=== PATIENT | female | born 2000 | race Two or more races ===

== ENCOUNTER 2022-05-18 16:01 | Emergency (ER) | payer MEDICAID, SELFPAY ==
[2022-05-18 17:27] VITALS: BP 102/59; PULSE 109; RESP 20; TEMP 36.6; O2SAT 100; BMI 24.0
[2022-05-18 18:00] LABS: MANUAL DIFF FLAG NO
[2022-05-18 18:01] LABS: Basophils Percent Auto 0.3 % (0-2); Hematocrit 36.6 % (37.0-47.0); Hemoglobin 12.2 g/dl (12.0-16.0); Imm Gran Abs Auto 0.11 X10*3/uL (0.00-0.03); Imm Gran Pct Auto 1.2 % (0.0-0.4); Lymphocytes Absolute Auto 0.4 X10*3/uL (1.2-4.9); Lymphocytes Percent Auto 3.9 % (20-40); Mean Corpuscular HGB Conc 33.3 g/dl (31.0-35.0); Mean Corpuscular Hemoglobin 27.7 pg (27.0-33.0); Mean Corpuscular Volume 83.2 fL (80.0-98.0); Mean Platelet Volume 11.4 fL (9.4-12.3); Monocytes Absolute Auto 0.7 X10*3/uL (0.1-1.2); Monocytes Percent Auto 7.4 % (2-11); Neutrophils Absolute Auto 8.2 x10*3/uL (2.0-8.3); Neutrophils Percent Auto 87.2 % (45-73); Platelet Count 252 X10*3/uL (160-400); Red Cell Distribution Width 13.9 % (11.0-16.0); White Blood Count 9.4 X10*3/uL (4.8-10.8)
[2022-05-18 18:22] LABS: Alanine Aminotransferase 19 U/L (0-31); Albumin Level 4.4 g/dL (3.5-5.0); Alkaline Phosphatase 65 U/L (39-117); Anion Gap 16 (12-20); Aspartate Amino Transferase 18 U/L (5-31); Bilirubin Direct < 0.2 mg/dL (0.0-0.5); Bilirubin Total 0.2 mg/dL (0.0-1.0); Blood Urea Nitrogen 10 mg/dL (9-16); Carbon Dioxide 19 mmol/L (22-29); Chloride 106 mmol/L (96-108); Creatinine Clr Calc Pharmacy 105.2; Estimated Glomerular Filt Rate > 60; Glucose Random 94 mg/dL (60-115); Lipase 6 U/L (8-78); Potassium 3.9 mmol/L (3.3-5.1); Sodium 137 mmol/L (135-145); Total Protein 7.1 g/dL (6.5-8.0)
== END 2022-05-18 20:35 | disposition left against medical advice (07) ==
LOC: HO.ED 20:31
PROVIDERS: Emergency Provider Emergency Medicine
DX: M79.10 Myalgia, unspecified site (principal); R11.10 Vomiting, unspecified; Z79.899 Other long term (current) drug therapy
CPT/HCPCS: 36415; 80048; 80076; 83690; 85025; 99281; 99282

== ENCOUNTER 2022-05-19 08:49 | Emergency (ER) | payer MEDICAID, SELFPAY ==
[2022-05-19 09:59] VITALS: BP 100/60; PULSE 100; RESP 18; TEMP 37.7; O2SAT 99; BMI 24.0
[2022-05-19] MEDS: Ondansetron ODT 4 MG TAB.RAPDIS TRANSLINGU (10:12)
[2022-05-19] MEDS: Ibuprofen 600 MG TABLET PO (10:12)
[2022-05-19 10:26] LABS: COVID-19 Test Positive (Negative); IDNOW Serial# 16C4AD1C
--- NOTE | 2022-05-19 12:24 | ED.NAVMDI ---
HPI - Nausea/Vomiting/Diarrhea General Chief complaint: Nausea/Vomiting/Diarrhea Stated complaint: vomiting dizzy Time Seen by Provider: 05/19/22 12:07 Source: patient Mode of arrival: ambulatory Limitations: no limitations History of Present Illness HPI Narrative: nausea and body aches - COVID + vaccinated x 2. vomited x 5 yesterday. but able to tolerate PO today. also notes rash on face since vomiting MD elicited complaint: nausea and vomiting Onset (ago): day(s) (yesterday ) Description of vomiting: watery Associated nausea: Yes Associated abdominal pain: No Location of pain: none Pain consistency: intermittent Severity: mild Quality: dull (body aches) Exacerbating factors: eating Relieving factors: none Context: sick contacts (went to [place]) Associated symptoms: myalgias, loss of appetite, malaise and nausea/vomiting Related Data Previous Rx's Medication Instructions Recorded ondansetron 4 mg disintegrating 4 mg PO Q8H PRN nausea and 05/19/22 tablet vomiting #20 tabs Allergies Allergy/AdvReac Type Severity Reaction Status Date / Time No Known Allergies Allergy Verified 05/18/22 17:26 Review of Systems Review of Systems: Constitutional : No Weight loss, No Fever, No Chills ENT/Mouth : No sore throat, No Rhinorrhea Eyes: No Swelling, No Redness Cardiovascular : No Chest Pain, No SOB, NoEdema Respiratory : No Cough, No Sputum, No Wheezing Gastrointestinal : Positive Nausea, Positive Vomiting, no Diarrhea, no abdominal Pain, No Hematochezia, No Melena Genitourinary : No Dysuria, No Urinary Frequency, No Hematuria, No Urgency Musculoskeletal : No joint pain, pos Myalgias, No Joint Swelling Skin : No Skin Lesions, pos rash Neuro : No Weakness, No Numbness, No Dizziness, No Headache Psych : No Anxiety/Panic, No Depression Heme/Lymph: No Bruising, No Lymphadenopathy Endocrine : No Polyuria, No Polydipsia All other systems reviewed and are negative. Gastrointestinal: Gastrointestinal: Reports nausea PMFSH Past Medical History Medical History No pertinent past medical history Social History Social History (Updated 05/19/22 @ 13:06 by Marie Phelps DO) Patient Tobacco Use Status: Never used Tobacco Advance Directives: No Advance Directives Information Provided: No Patient : No Physical Exam Vital Signs: Vital Signs: Last Vital Signs Temp 99.9 F 05/19/22 09:59 Pulse 100 05/19/22 09:59 Resp 18 05/19/22 09:59 BP 100/60 05/19/22 09:59 Pulse Ox 99 05/19/22 09:59 O2 Del Method 05/19/22 09:59 BMI result Body Mass Index 24.0 Appearance: Alert. Oriented X3. No acute distress. Eyes: Pupils equal, round and reactive to light. ENT: Pharynx normal MMM faint petechia noted on face Neck: Normal inspection. Neck supple. CVS: Normal heart rate and rhythm. Pulses normal. Respiratory: No respiratory distress. Breath sounds normal. Abdomen: Soft and nontender. Skin: Skin warm and dry. Normal skin color. Normal skin turgor. Extremities: No lower extremity edema. No calf ttp Neuro: Oriented X 3. No motor deficit. No sensory deficit. MDM - Nausea/Vomiting/Diarrhea MDM Narrative Medical decision making narrative: 21 yo female with vomiting and nausea - vomiting has stopped and body aches - she is COVID + vaccinated x 2. Has no risk factors to start medications. She is able to tolerate PO. She denies concerns. She has petechial rash on face likely from throwing up at this time will obtain CBC and BMP anticipate DC home with supportive care. Lab Data Labs: Lab Results 05/19/22 Range/Units 10:10 COVID-19 ([facility]) Positive A (Negative) COVID-19 Clin Com See Note Discharge Plan Discharge Clinical Impression: COVID-19 Vomiting Qualifiers: Vomiting type: unspecified Nausea presence: with nausea Qualified Code(s): R11.2 - Nausea with vomiting, unspecified Patient Disposition: Home, Self-Care Instructions: Acute Nausea and Vomiting (ED), COVID-19 (Coronavirus Disease 2019) (ED) Additional Instructions: return to ED for any worsening symptoms or concerns drink plenty of fluids if you become so short of breath you cannot walk to your own bathroom please seek medical care Prescriptions: New ondansetron 4 mg tablet,disintegrating 4 mg PO Q8H PRN (Reason: nausea and vomiting) Qty: 20 0RF Stand Alone Forms: Work/School Release
[2022-05-19] MEDS: Acetaminophen 325 MG TABLET 650 MG PO (12:56)
[2022-05-19 13:16] LABS: MANUAL DIFF FLAG NO
[2022-05-19 13:19] LABS: Hematocrit 37.7 % (37.0-47.0); Hemoglobin 12.3 g/dl (12.0-16.0); Imm Gran Abs Auto 0.04 X10*3/uL (0.00-0.03); Imm Gran Pct Auto 0.9 % (0.0-0.4); Lymphocytes Absolute Auto 0.9 X10*3/uL (1.2-4.9); Lymphocytes Percent Auto 19.9 % (20-40); Mean Corpuscular HGB Conc 32.6 g/dl (31.0-35.0); Mean Corpuscular Volume 82.7 fL (80.0-98.0); Mean Platelet Volume 11.1 fL (9.4-12.3); Monocytes Absolute Auto 0.8 X10*3/uL (0.1-1.2); Monocytes Percent Auto 19.2 % (2-11); Neutrophils Absolute Auto 2.6 x10*3/uL (2.0-8.3); Platelet Count 239 X10*3/uL (160-400); Red Blood Count 4.56 X10*6/uL (4.20-5.50); Red Cell Distribution Width 14.2 % (11.0-16.0); White Blood Count 4.3 X10*3/uL (4.8-10.8)
[2022-05-19 13:34] LABS: Anion Gap 15 (12-20); Blood Urea Nitrogen 9 mg/dL (9-16); Carbon Dioxide 22 mmol/L (22-29); Chloride 105 mmol/L (96-108); Creatinine Clr Calc Pharmacy 99.5; Estimated Glomerular Filt Rate > 60; Glucose Random 93 mg/dL (60-115); Potassium 3.6 mmol/L (3.3-5.1); Sodium 138 mmol/L (135-145)
== END 2022-05-19 13:39 | disposition home or self-care (01) ==
PROVIDERS: Emergency Provider Emergency Medicine
DX: U07.1 COVID-19 (principal); R11.2 Nausea with vomiting, unspecified
CPT/HCPCS: 36415; 80048; 85025; 87635; 99283

== ENCOUNTER 2022-09-04 16:50 | Emergency (ER) | payer MEDICAID, SELFPAY ==
--- NOTE | ~2022-09-04 | XR_ITS ---
EXAMINATION: XR LUMBOSACRAL SPINE CLINICAL INFORMATION: Atraumatic back pain. COMPARISON: None TECHNIQUE: Three views of the lumbosacral spine. FINDINGS: The vertebral bodies and posterior elements are normal. The disc spaces are preserved and the vertebral alignment is normal. The paraspinal soft tissues are normal. XR/XR lumbar spine 2-3V IMPRESSION: Unremarkable lumbar spine.
[2022-09-04 16:58] VITALS: BP 112/68; PULSE 78; RESP 18; TEMP 36.6; O2SAT 98; BMI 24.7
--- NOTE | 2022-09-04 16:58 | ED.BACK ---
HPI - Back Pain/Injury General Chief Complaint: Back Pain/Injury <Jossy Porter NP - Last Filed: 09/04/22 17:00> Stated Complaint: lower back pain,left leg pain <Jossy Porter NP - Last Filed: 09/04/22 17:00> Time Seen by Provider: 09/04/22 17:05 <Jossy Porter NP - Last Filed: 09/04/22 17:00> Source: patient <Elsy Robles NP - Last Filed: 09/04/22 18:30> Mode of arrival: ambulatory <Elsy Robles NP - Last Filed: 09/04/22 18:30> Limitations: no limitations <Elsy Robles NP - Last Filed: 09/04/22 18:30> History of Present Illness HPI Narrative: 21-year-old female with no significant past medical history presents to the emergency department today with complaints of left-sided back pain which radiates down her lower left leg with difficulty ambulation due to pain x 7 weeks. She states she has previously seen her primary care provider twice, who has prescribed muscle relaxers which work for 1-2 days and then no longer provide relief of pain. She states pain reduces with ambulation. She states pain began roughly 7 weeks ago after she stretched and felt a pulling/pop sensation in her left back. She denies any injury, fever, chills, saddle anesthesia, loss of bowel or bladder, urinary hesitancy. <Elsy Robles NP - Last Filed: 09/04/22 18:30> MD elicited complaint: back pain <Elsy Robles NP - Last Filed: 09/04/22 18:30> Onset (ago): week(s) (7) <Elsy Robles NP - Last Filed: 09/04/22 18:30> Timing: constant <Elsy Robles NP - Last Filed: 09/04/22 18:30> Severity: moderate <Elsy Robles NP - Last Filed: 09/04/22 18:30> Pain scale (0-10): 6 <Elsy Robles NP - Last Filed: 09/04/22 18:30> Quality: aching <Elsy Robles NP - Last Filed: 09/04/22 18:30> Location: left lower back <Elsy Robles NP - Last Filed: 09/04/22 18:30> Radiation: buttocks and left upper leg <Elsy Robles NP - Last Filed: 09/04/22 18:30> Exacerbating factors: movement <Elsy Robles NP - Last Filed: 09/04/22 18:30> Relieving factors: walking <Elsy Robles NP - Last Filed: 09/04/22 18:30> Context: bending <Elsy Robles NP - Last Filed: 09/04/22 18:30> Associated symptoms: denies other symptoms <Elsy Robles NP - Last Filed: 09/04/22 18:30> Work related injury: No <Elsy Robles NP - Last Filed: 09/04/22 18:30> Related Data Home Medications: Previous Rx's Medication Instructions Recorded ondansetron 4 mg disintegrating 4 mg PO Q8H PRN nausea and 05/19/22 tablet vomiting #20 tabs oxycodone 5 mg capsule 5 mg PO TID PRN pain #3 caps 09/04/22 prednisone 20 mg tablet 40 mg PO DAILY 5 days #10 tabs 09/04/22 <Jossy Porter NP - Last Filed: 09/04/22 17:00> Allergies/Adverse Reactions: Allergies Allergy/AdvReac Type Severity Reaction Status Date / Time No Known Allergies Allergy Verified 05/18/22 17:26 <Jossy Porter NP - Last Filed: 09/04/22 17:00> Review of Systems Review of Systems: In addition to documented HPI above, the additional ROS was obtained: Constitutional: No Weight loss, No Fever, No Chills ENT/Mouth: No Ear Pain, No Nasal Congestion, No Sinus Pain, No Hoarseness, No sore throat, No Rhinorrhea, No Swallowing Difficulty Cardiovascular: No Chest Pain, No SOB Respiratory: No Cough, No Sputum, No Wheezing Gastrointestinal: No Nausea, No Vomiting, No Diarrhea, No Constipation, No Abdominal pain Genitourinary: No Dysuria, No Urinary Frequency, No Hematuria, No Urinary Incontinence/retention, No Urgency, No Flank Pain Musculoskeletal: No joint pain, No Myalgias, No Joint Swelling Skin: No Skin Lesions, No rash Neuro: No Weakness, No Numbness, No Paresthesias <Elsy Robles NP - Last Filed: 09/04/22 18:30> Yes all other systems are reviewed and are negative <Elsy Robles NP - Last Filed: 09/04/22 18:30> [facility] Past Medical History Attestation statement: The following information was validated with the patient. <Elsy Robles NP - Last Filed: 09/04/22 18:30> Source: old records reviewed <Elsy Robles NP - Last Filed: 09/04/22 18:30> Medical History: Medical History No pertinent past medical history <Jossy Porter NP - Last Filed: 09/04/22 17:00> Social History Social History: Social History Patient Tobacco Use Status: Never used Tobacco Advance Directives: No Advance Directives Information Provided: No <Jossy Porter NP - Last Filed: 09/04/22 17:00> Physical Exam Vital Signs: Vital Signs: Last Vital Signs Temp 98 F 09/04/22 16:58 Pulse 78 09/04/22 16:58 Resp 18 09/04/22 16:58 BP 112/68 09/04/22 16:58 Pulse Ox 98 09/04/22 16:58 O2 Del Method 09/04/22 16:58 BMI result Body Mass Index 24.7 <Jossy Porter NP - Last Filed: 09/04/22 17:00> Vital Signs: Last Vital Signs Temp 98 F 09/04/22 16:58 Pulse 78 09/04/22 16:58 Resp 18 09/04/22 16:58 BP 112/68 09/04/22 16:58 Pulse Ox 98 09/04/22 16:58 O2 Del Method 09/04/22 16:58 BMI result Body Mass Index 24.7 <Elsy Robles NP - Last Filed: 09/04/22 18:30> Nursing notes and vital signs reviewed. GENERAL APPEARANCE: A&0 x 4, generally well appearing, no acute distress HENMT: Normal to inspection, atraumatic, face symmetrical. Normal external ears, nose, and oropharynx clear. EYE: PERRLA, EOM intact, structures appear normal NECK: Supple without lymphadenopathy. No stiffness or restricted ROM. CHEST: Normal to inspection HEART: Normal rate and regular rhythm, normal S1/S2, no M/R/G LUNGS: LS CTA, moving air well. Able to speak in complete sentences. No crackles, wheezes, or rhonchi auscultated ABDOMEN: Soft, nontender, nondistended. Normal bowel sounds noted BACK: No CVAT, no obvious deformity EXTREMITIES: Moving all extremities without difficulty. No cyanosis, clubbing, or edema. Normal capillary refill. NEUROLOGICAL: Alert and oriented, moving all 4 extremities with equal strength. CN not formally tested but appearing grossly intact. Observed to ambulate with normal gait. Cognition normal SKIN: Warm and dry without any lesions, rash, or visible sores PSYCH: Cooperative, normal affect, normal thought process <Elsy Robles NP - Last Filed: 09/04/22 18:30> Course Course Course Narrative: This is rapid medical exam. Deferred additional HPI, ROS, PE to primary provider. 21-year-old female healthy here with complaints of lower back pain for 7 weeks with radiation down the left leg. Patient seen by primary care initially started on meloxicam with no improvement, thought week ago with started on muscle relaxants. Patient reports continued pain with no improvement. Patient has plans to start physical therapy tomorrow. Patient here because she wants an x-ray. VSS. X-ray ordered. <Jossy Porter NP - Last Filed: 09/04/22 17:00> Medical Decision Making Medical Decision Making MDM Narrative: 21-year-old female with no significant past medical history presents to the emergency department today with complaints of left-sided back pain which radiates down her lower left leg with difficulty ambulation due to pain x 7 weeks. She states she has previously seen her primary care provider twice, who has prescribed muscle relaxers which work for 1-2 days and then no longer provide relief of pain. She states pain reduces with ambulation. She states pain began roughly 7 weeks ago after she stretched and felt a pulling/pop sensation in her left back. Physical exam with patient moving all extremities equally with good strength, A&O X 4, LS CTA. Lumbar x-ray shows normal vertebral bodies and posterior elements, the disc spaces are preserved at, and the vertebral alignments normal, the paraspinal soft tissues are normal. Physical exam with no step-offs or red flag symptoms.? Low back pain consistent with muscle strain.? Low suspicion of cauda equina, epidural abscess, lumbar stenosis. Patient is safe for discharge at this time with plan to manage discomfort with [id number] Tylenol, Motrin, and prescribe narcotic pain medication. Five-day course of prednisone sent to patient's preferred pharmacy for treatment of inflammation. Recommended the patient continue physical therapy appointment tomorrow for further treatment and recommendations. HPI, PE, diagnostics, and plan discussed with patient and family with no unanswered questions at this time. Patient educated to return to the emergency department with new, worsening, or concerning emergent symptoms. Recommended to follow-up with her primary care provider for further treatment and management. *Refer to Course for additional information on consultations, diagnostic interpretation, consultations, emergency department stay, conversations with patient and family, shared decision making with patient, and more information on medical decision making* <Elsy Robles NP - Last Filed: 09/04/22 18:30> Independent Interpretation I performed an independent interpretation of an: Plain X-Ray <LAZ Khan Last Filed: 09/04/22 18:30> Interpretation: I independently interpreted the lumbar x-ray showing no abnormality, fracture, or vertebral abnormalities. <LAZ Khan Last Filed: 09/04/22 18:30> Discharge Plan Discharge Clinical Impression: Low back pain <LAZ Del Rosraio Last Filed: 09/04/22 17:00> Patient Disposition: Home, Self-Care <LAZ Del Rosario Last Filed: 09/04/22 17:00> Instructions: Sciatica (ED), Acute Low Back Pain (ED), Lower Back Exercises (ED) <Jossy Porter NP - Last Filed: 09/04/22 17:00> Additional Instructions: Your lumbar x-ray shows normal vertebral bodies and posterior elements, the disc spaces are preserved at, and the vertebral alignments normal, the paraspinal soft tissues are normal. <Jossy Porter NP - Last Filed: 09/04/22 17:00> Prescriptions: New oxycodone 5 mg capsule 5 mg PO TID PRN (Reason: pain) Qty: 3 0RF Rx Instructions: Partial Fill upon patient request. prednisone 20 mg tablet 40 mg PO DAILY 5 Days Qty: 10 0RF No Action ondansetron 4 mg tablet,disintegrating 4 mg PO Q8H PRN (Reason: nausea and vomiting) Qty: 20 0RF <Jossy Porter NP - Last Filed: 09/04/22 17:00> Referrals: [facility] [Provider Group] [place] [Primary Care Provider] - <Jossy Porter NP - Last Filed: 09/04/22 17:00> Stand Alone Forms: Work/School Release <Jossy Porter NP - Last Filed: 09/04/22 17:00>
--- OUTSIDE RECORDS SUMMARY | 2022-09-04 17:36 | XMS_ITS | Continuity of Care Document ---
:2000 Author Organization [facility] enter/[facility] [place] Address Unavailable , Care Team Providers Name Role Phone Trina NESBITT, Nasrin Valdes Primary Care Physician [phone] [facility] [place] Date(s): 03/15/21 - 04/14/21 [facility] Allergies, Adverse Reactions, Alerts Substance Reaction Severity Status NKA Active Immunizations Given and Recorded Vaccine Date Status Refusal Reason SARS-CoV-2 (COVID-19) mRNA BNT-162b2 vac 04/02/21 Given SARS-CoV-2 (COVID-19) mRNA BNT-162b2 vac 03/12/21 Given Meningococcal Conjugate Vaccine 09/21/17 Recorded Meningococcal Conjugate Vaccine 03/28/13 Recorded influenza virus vaccine, inactivated 09/21/17 Recorded influenza virus vaccine, inactivated 06/07/13 Recorded Human Papillomavirus Vaccine 03/28/13 Recorded Human Papillomavirus Vaccine 05/01/12 Recorded Hepatitis A Pediatric Vaccine 03/28/13 Recorded Hepatitis A Pediatric Vaccine 05/01/12 Recorded Varicella Virus Vaccine 05/01/12 Recorded Varicella Virus Vaccine 01/11/02 Recorded tetanus/diphtheria/pertussis, acel(Tdap) 05/01/12 Recorde d Poliovirus Vaccine, Inactivated 04/03/05 Recorded Poliovirus Vaccine, Inactivated 08/13/01 Recorded Poliovirus Vaccine, Inactivated 06/07/01 Recorded Poliovirus Vaccine, Inactivated 03/13/01 Recorded Measles/Mumps/Rubella Virus Vaccine 04/03/05 Recorded Measles/Mumps/Rubella Virus Vaccine 01/11/02 Recorded diphtheria/tetanus/pertussis, acel(DTaP) 04/03/05 Recorde d diphtheria/tetanus/pertussis, acel(DTaP) 03/03/02 Recorde d diphtheria/tetanus/pertussis, acel(DTaP) 06/07/01 Recorde d diphtheria/tetanus/pertussis, acel(DTaP) 03/13/01 Recorde d hepatitis B pediatric vaccine 04/21/02 Recorded hepatitis B pediatric vaccine 06/07/01 Recorded hepatitis B pediatric vaccine 03/13/01 Recorded haemophilus b conjugate (PRP-T) vaccine 04/21/02 Recorded haemophilus b conjugate (PRP-T) vaccine 06/07/01 Recorded haemophilus b conjugate (PRP-T) vaccine 03/13/01 Recorded pneumococcal 7-valent vaccine 03/13/01 Recorded Medications Spacer Spacer, See Instructions, # 1 each, Refills 0, Tot. Refills 0, Maintenance, Asthma (J45.909) MEHDI lifetime, 01/25/21 17:27:00 EDT, Compound, 156, cm, 01/25/21 14:05:00 EDT, Height Start Date: 01/25/21 Status: OrderedSymbicort 80mcg/4.5mcg Inhaler See Instructions, PRN, 1 puff with spacer as needed for cough or shortness of breath. repeat if needed every 1-2 hours. do not exceed 12 puffs in one day. Label in occitan, # 1 each, Refills 1, Tot. Refills 1, Maintenance, 02/01/21 8:29:00 EDT, In... Start Date: 02/01/21 Status: Ordered Problem List Condition Effective Dates Status Health Status Informant Mild intermittent asthma(Confirmed) Active Social History Social History Type Response Smoking Status Never (less than 100 in life time) entered on: 01/25/21 Sex
--- OUTSIDE RECORDS SUMMARY | 2022-09-04 17:36 | XMS_ITS | Continuity of Care Document ---
:2000 Author Organization [facility] enter/[facility] [place] Address Unavailable , Care Team Providers Name Role Phone Trina NESBITT, Nasrin Valdes Primary Care Physician Encounter [facility] [place] Date(s): 05/27/21 - 06/26/21 [facility] Allergies, Adverse Reactions, Alerts Substance Reaction Severity [...] Recorded pneumococcal 7-valent vaccine 03/13/01 Recorded Medications naproxen 500 mg oral tablet 1 tablet = 500 mg, By Mouth, 2 times a day, with food for pain, # 60 tablet, 0 Refills, Maintenance,06/26/21 9:45:00 EDT, Tablet, [facility][id number], Partial fill upon patient request if the prescription is for a schedule II opioid drug., 1... Start Date: 06/26/21 Status: OrderedSpacer Spacer, See Instructions, # 1 each, Refills [...] 12 puffs in one day. Label in romansh, # 1 each, Refills 1, Tot. Refills 1, Maintenance, 02/01/21 8:29:00 EDT, In... Start Date: 02/01/21 Status: Ordered Problem List Condition Effective Dates Status Health Status Informant Other ovarian cyst, right Active side(Confirmed) Mild intermittent asthma(Confirmed) Active Social History Social History Type Response Smoking Status Never (less than 100 in life time) entered on: 06/26/21 Sex
--- OUTSIDE RECORDS SUMMARY | 2022-09-04 17:36 | XMS_ITS | Continuity of Care Document ---
:2000 Author Organization [facility] enter/[facility] Address Unavailable , Care Team Providers Name Role Phone Trina NESBITT, Nasrin Valdes Primary Care Physician Encounter [facility] [place] Date(s): 04/15/21 - 06/28/21 [facility] Attending Physician: Trina NESBITT, Nasrin Valdes Admitting Physician: Nasrin Mena NP Allergies, Adverse Reactions, Alerts Substance Reaction Severity [...] tablet, 0 Refills, Maintenance,06/26/21 9:45:00 EDT, Tablet, [facility] #[id number], Partial fill upon patient request if the [...] 12 puffs in one day. Label in malagasy, # 1 each, Refills 1, Tot. Refills 1, Maintenance, 02/01/21 8:29:00 EDT, In... Start Date: 02/01/21 Status: Ordered Problem List Condition Effective Dates Status Health Status Informant Other ovarian cyst, right Active side(Confirmed) Mild intermittent asthma(Confirmed) Active Social History Social History Type Response Smoking Status Never (less than 100 in life time) entered on: 06/26/21 Sex
--- OUTSIDE RECORDS SUMMARY | 2022-09-04 17:36 | XMS_ITS | Continuity of Care Document ---
:2000 Author Organization [facility] enter/[facility] Address Unavailable , Care Team Providers Name Role Phone Trina NESBITT, Nasrin Valdes Primary Care Physician [place] [facility] [place] 05/28/21 - 06/30/21 [facility] Attending Physician: Trina NESBITT, Nasrin Valdes Admitting [...] tablet, 0 Refills, Maintenance,06/26/21 9:45:00 EDT, Tablet, [facility] #[id number], Partial fill upon patient request if the [...] 12 puffs in one day. Label in [place], # 1 each, Refills 1, Tot. Refills 1, Maintenance, 02/01/21 8:29:00 EDT, In... Start Date: 02/01/21 Status: Ordered Problem List Condition Effective Dates Status Health Status Informant Other ovarian cyst, right Active side(Confirmed) Mild intermittent asthma(Confirmed) Active Social History Social History Type Response Smoking Status Never (less than 100 in life time) entered on: 06/26/21 Sex
--- OUTSIDE RECORDS SUMMARY | 2022-09-04 17:36 | XMS_ITS | Continuity of Care Document ---
:2000 Author Organization [facility] Address [address] [place] [address]- Care Team Providers Name Role Phone Trina NESBITT, Nasrin Valdes Primary Care Physician [place] [facility] [place] 02/03/21 [facility]/[address] [id number] Immunizations Given and Recorded Vaccine Date Status Refusal Reason Meningococcal Conjugate Vaccine 09/21/17 Recorded Meningococcal Conjugate [...] Recorded pneumococcal 7-valent vaccine 03/13/01 Recorded Medications methocarbamol 750 mg oral tablet 1 tablet = 750 mg, By Mouth, 3 times a day, PRN back pain/spasm, for 10 days, # 30 tablet, 0 Refills, Acute 02/04/21 17:29:00 EDT, 01/25/21 17:29:00 EDT, Tablet, [facility][id number], Partial fill upon patient request if the prescription is for... Start Date: 01/25/21 Stop Date: 02/04/21 Status: Orderednaproxen 500 mg oral tablet 1 tablet = 500 mg, By Mouth, 2 times a day, PRN back pain, label in turkish, # 60 tablet, 0 Refills,Acute 02/22/21 17:28:00 EDT, 01/25/21 17:28:00 EDT, Tablet, [facility] #[id number], Partial fill upon patient request if the prescription is for... Start Date: 01/25/21 Stop Date: 02/22/21 Status: OrderedSpacer Spacer, See Instructions, # 1 [...] 12 puffs in one day. Label in turkish, # 1 each, Refills 1, Tot. Refills 1, Maintenance, 02/01/21 8:29:00 EDT, In... Start Date: 02/01/21 Status: Ordered Problem List Condition Effective Dates Status Health Status Informant Mild intermittent asthma(Confirmed) Active Social History Social History Type Response Smoking Status Never (less than 100 in life time) entered on: 01/25/21 Sex
--- OUTSIDE RECORDS SUMMARY | 2022-09-04 17:36 | XMS_ITS | Continuity of Care Document ---
:2000 Author Organization [facility] Address [address] [place] [address]- Care Team Providers Name Role Phone Trina NESBITT, Nasrin Valdes Primary Care Physician [phone] Encounter [facility] [place] Date(s): 02/28/21 - 03/30/[address] [id number] Attending Physician: Admtr, [id number] Admitting Physician: Admtr, Ar8 Referring Physician: Admtr, Ar8 Allergies, Adverse Reactions, Alerts Substance Reaction Severity Status NKA Active Immunizations Given and Recorded Vaccine Date Status Refusal Reason SARS-CoV-2 (COVID-19) mRNA BNT-162b2 vac 03/12/21 Given [...] a day, PRN back pain, label in beninese, # 60 tablet, 0 Refills,Acute 04/12/21 18:08:00 EDT, 03/12/21 18:08:00 EDT, Tablet, [facility] #[id number], Partial fill upon patient request if the prescription is for... Start Date: 03/12/21 Stop Date: 04/12/21 Status: OrderedSpacer Spacer, See Instructions, # 1 [...] 12 puffs in one day. Label in beninese, # 1 each, Refills 1, Tot. Refills 1, Maintenance, 02/01/21 8:29:00 EDT, In... Start Date: 02/01/21 Status: Ordered Problem List Condition Effective Dates Status Health Status Informant Mild intermittent asthma(Confirmed) Active Social History Social History Type Response Smoking Status Never (less than 100 in life time) entered on: 01/25/21 Sex
--- OUTSIDE RECORDS SUMMARY | 2022-09-04 17:36 | XMS_ITS | Continuity of Care Document ---
:2000 Author Organization [facility] Address [address] [place] [address]- Care Team Providers Name Role Phone Trina NESBITT, Nasrin Valdes Primary Care Physician Encounter [facility] ACCT R [id number] Date(s): 02/06/21 - 04/28/[address] [address] Discharge Disposition: A-D/C Home Attending Physician: Trina NESBITT, Nasrin Valdes Admitting Physician: Nasrin Mena NP Referring Physician: Nasrin Mena NP Allergies, Adverse Reactions, [...] 12 puffs in one day. Label in new zealander, # 1 each, Refills 1, Tot. Refills 1, Maintenance, 02/01/21 8:29:00 EDT, In... Start Date: 02/01/21 Status: Ordered Problem List Condition Effective Dates Status Health Status Informant Mild intermittent asthma(Confirmed) Active Social History Social History Type Response Smoking Status Never (less than 100 in life time) entered on: 01/25/21 Sex
--- OUTSIDE RECORDS SUMMARY | 2022-09-04 17:36 | XMS_ITS | Continuity of Care Document ---
:2000 Author Organization [facility] enter/[facility] Address Unavailable , Care Team Providers Name Role Phone Trina NESBITT, Nasrin Valdes Primary Care Physician [phone] Encounter [facility] Date(s): 04/15/21 - 05/15/21 [facility] Allergies, Adverse Reactions, Alerts Substance Reaction [...] Recorded pneumococcal 7-valent vaccine 03/13/01 Recorded Medications ibuprofen 400 mg oral tablet 400 mg, 1, tablet, By Mouth, Every 6 hours, PRN, # 60 tablet, Refills 1, Tot. Refills 1, Maintenance, for pain, 05/09/21 17:07:00 EDT, Route to Pharmacy Electronically, [facility] #[id number], Partial fill upon patient request if the prescription... Start Date: 05/09/21 Status: OrderedSpacer Spacer, See Instructions, # 1 [...] 12 puffs in one day. Label in turkmen, # 1 each, Refills 1, Tot. Refills 1, Maintenance, 02/01/21 8:29:00 EDT, In... Start Date: 02/01/21 Status: Ordered Problem List Condition Effective Dates Status Health Status Informant Other ovarian cyst, right Active side(Confirmed) Mild intermittent asthma(Confirmed) Active Social History Social History Type Response Smoking Status Never (less than 100 in life time) entered on: 01/25/21 Sex
--- OUTSIDE RECORDS SUMMARY | 2022-09-04 17:36 | XMS_ITS | Continuity of Care Document ---
:2000 Author Organization [facility] enter/[facility] Address Unavailable , Care Team Providers Name Role Phone Trina NESBITT, Nasrin Valdes Primary Care Physician [phone] Encounter [facility] [place] Date(s): 03/26/21 - 04/25/21 [facility] Attending Physician: Nasrin Mena NP Admitting Physician: Nasrin Mena NP Allergies, Adverse [...] 12 puffs in one day. Label in japanese, # 1 each, Refills 1, Tot. Refills 1, Maintenance, 02/01/21 8:29:00 EDT, In... Start Date: 02/01/21 Status: Ordered Problem List Condition Effective Dates Status Health Status Informant Mild intermittent asthma(Confirmed) Active Social History Social History Type Response Smoking Status Never (less than 100 in life time) entered on: 01/25/21 Sex
--- OUTSIDE RECORDS SUMMARY | 2022-09-04 17:36 | XMS_ITS | Continuity of Care Document ---
:2000 Author Organization [facility] Address [address] [place] [address]- Care Team Providers Name Role Phone Not on Staff, PCP Primary Care Physician Unavailable Encounter [facility] Date(s): 09/13/21 - 09/13/[address] [address]- Encounter Diagnosis Dog bite of lower extremity (Final) - 09/13/21 Discharge Disposition: A-D/C Home Attending Physician: Ama Garcia DO Admitting Physician: Ama Garcia DO Referring Physician: Not on Staff, Referring MD Allergies, Adverse Reactions, Alerts No Known Allergies Immunizations Given and Recorded Vaccine Date Status Refusal Reason Rabies Immune Globulin, Human1 09/13/21 Given rabies vaccine, human diploid cell 09/13/21 Given tetanus/diphtheria/pertussis, acel(Tdap) 09/13/21 Given tetanus/diphtheria/pertussis, acel(Tdap) 05/01/12 Recorde d SARS-CoV-2 (COVID-19) mRNA BNT-162b2 vac 04/02/21 Given [...] 05/01/12 Recorded Varicella Virus Vaccine 01/11/02 Recorded Poliovirus Vaccine, Inactivated 04/03/05 Recorded Poliovirus Vaccine, [...] 03/13/01 Recorded pneumococcal 7-valent vaccine 03/13/01 Recorded 1Result Comment: [id number] 07/31/23 [id number] 07/31/23 [id number] 07/31/23 Medications Augmentin 875 mg-125 mg oral tablet 1 tablet, By Mouth, Every 12 hours, for 10 days, # 20 tablet, 0 Refills, Acute 09/23/21 20:57:00 EST, 09/13/21 20:57:00 EST, Tablet, [facility] #[id number], Partial fill upon patient request if the prescription is for a schedule II opioid drug.,... Start Date: 09/13/21 Stop Date: 09/23/21 Status: Orderednaproxen 500 mg oral tablet 1 tablet = 500 mg, By Mouth, 2 times a day, with food for pain, # 60 tablet, 0 Refills, Maintenance,06/26/21 9:45:00 EDT, Tablet, [facility] #[id number], Partial fill upon patient request if the [...] 12 puffs in one day. Label in serbian, # 1 each, Refills 1, Tot. Refills 1, Maintenance, 02/01/21 8:29:00 EDT, In... Start Date: 02/01/21 Status: Ordered Problem List Condition Effective Dates Status Health Status Informant Other ovarian cyst, right Active side(Confirmed) Mild intermittent asthma(Confirmed) Active Results Radiology Reports Exam Date Time Procedure Performing Provider Status 09/13/21 8:19 PM XR Femur 2 Views Right Сергей Gonzalez; Auth (Sinan ified) Notes:(XR Femur 2 Views Right) Reason For Exam: Foreign BodyRESULT: Femur 2 Views Right Femur 2 Views Right, views Hx of Present Illness: Pt presents with right upper leg bite from dog, bleeding controlled, +cms, [facility] not [facility] stay for wait. Pt states reported with police; Reason: Foreign Body; Clinical Question(s): Loose Bodies; Special Instructions: Dog bite to the leg COMPARISON: None. FINDINGS: No fracture, dislocation or bone lesion. Gas noted in the soft tissues in the lateral thigh. No radiopaque foreign body identified. Normal soft tissues. IMPRESSION: No radiopaque foreign body identified in the right thigh. WSN: [id number] Ordering Physician: Gilma Pelayo Dictated By: Ke Carbajal MD Dictated Date/Time: 09/13/21 8:32 pm Reviewed By: Ke Carbajal MD Signed By: Ke Carbajal MD Signed Date/Time: 09/13/21 8:32 pm Transcribed By: JEREMIAS Transcribed Date/Time: 09/13/21 8:29 pm Vital Signs Most recent to oldest [Reference 1 2 Range]: Weight 53.6 kg 53.6 kg (09/13/21 7:03 PM) (09/13/21 7:02 PM) Oxygen Saturation [94-100 %] 100 % 100 % (09/13/21 7:35 PM) (09/13/21 5:05 PM) Pulse Rate [55-90 bpm] 87 bpm 83 bpm (09/13/21 7:35 PM) (09/13/21 5:05 PM) Blood Pressure [90-138/55-84 mm Hg] 102/61 mm Hg 102/ 57 mm Hg (09/13/21 7:35 PM) (09/13/21 5:05 PM) Respiratory Rate [16-30 br/min] 18 br/min (09/13/21 5:05 PM) Temperature [96.8-100.4 DegF] 98.1 DegF 97.8 DegF (09/13/21 7:35 PM) (09/13/21 5:05 PM) Mode of Delivery (Oxygen) Room air Room air (09/13/21 7:35 PM) (09/13/21 5:05 PM) Blood pressure sites Arm, left Arm, left (09/13/21 7:35 PM) (09/13/21 5:05 PM) Temperature Route Oral Oral (09/13/21 7:35 PM) (09/13/21 5:05 PM) Dry Weight 53.6 kg (09/13/21 7:03 PM) Weight Obtained Via Patient/family stated Patient/family sta josephine (09/13/21 7:03 PM) (09/13/21 7:02 PM) Dry Weight Obtained Via Patient/family stated (09/13/21 7:03 PM) Social History Social History Type Response Smoking Status Never (less than 100 in life time) entered on: 06/26/21 Sex
--- OUTSIDE RECORDS SUMMARY | 2022-09-04 17:36 | XMS_ITS | Continuity of Care Document ---
:2000 Author Organization [facility] enter/[facility] Address Unavailable , Care Team Providers Name Role Phone Trina NESBITT, Nasrin Valdes Primary Care Physician [place] [facility]/17[place] 08/16/21 [facility] Allergies, Adverse Reactions, Alerts Substance [...] tablet, 0 Refills, Maintenance,06/26/21 9:45:00 EDT, Tablet, [facility] #[id number], Partial fill upon patient request if the [...] 12 puffs in one day. Label in czech, # 1 each, Refills 1, Tot. Refills 1, Maintenance, 02/01/21 8:29:00 EDT, In... Start Date: 02/01/21 Status: Ordered Problem List Condition Effective Dates Status Health Status Informant Other ovarian cyst, right Active side(Confirmed) Mild intermittent asthma(Confirmed) Active Social History Social History Type Response Smoking Status Never (less than 100 in life time) entered on: 06/26/21 Sex
--- OUTSIDE RECORDS SUMMARY | 2022-09-04 17:36 | XMS_ITS | Continuity of Care Document ---
:2000 Author Organization [facility] enter/[facility] Address Unavailable , Care Team Providers Name Role Phone Trina NESBITT, Nasrin Valdes Primary Care Physician [phone] Encounter [facility] Date(s): 05/07/21 - 06/06/21 [facility] Allergies, Adverse Reactions, Alerts Substance Reaction Severity [...] 05/09/21 17:07:00 EDT, Route to Pharmacy Electronically, [facility] #[id number], Partial fill upon patient request if the [...] 12 puffs in one day. Label in greek, # 1 each, Refills 1, Tot. Refills 1, Maintenance, 02/01/21 8:29:00 EDT, In... Start Date: 02/01/21 Status: Ordered Problem List Condition Effective Dates Status Health Status Informant Other ovarian cyst, right Active side(Confirmed) Mild intermittent asthma(Confirmed) Active Social History Social History Type Response Smoking Status Never (less than 100 in life time) entered on: 01/25/21 Sex
--- OUTSIDE RECORDS SUMMARY | 2022-09-04 17:36 | XMS_ITS | Continuity of Care Document ---
:2000 Author Organization [facility] enter/[facility] Address Unavailable , Care Team Providers Name Role Phone Trina NESBITT, Nasrin Valdes Primary Care Physician Encounter [facility] [place] [place] Date(s): 04/12/21 - 05/12/21 [facility] Allergies, Adverse Reactions, Alerts Substance Reaction [...] 05/09/21 17:07:00 EDT, Route to Pharmacy Electronically, [facility] #[id number], Partial fill upon patient request if the [...] 12 puffs in one day. Label in albanian, # 1 each, Refills 1, Tot. Refills 1, Maintenance, 02/01/21 8:29:00 EDT, In... Start Date: 02/01/21 Status: Ordered Problem List Condition Effective Dates Status Health Status Informant Other ovarian cyst, right Active side(Confirmed) Mild intermittent asthma(Confirmed) Active Social History Social History Type Response Smoking Status Never (less than 100 in life time) entered on: 01/25/21 Sex
--- OUTSIDE RECORDS SUMMARY | 2022-09-04 17:36 | XMS_ITS | Continuity of Care Document ---
:2000 Author Organization [facility] enter/[facility] Address Unavailable , Care Team Providers Name Role Phone Trina NESBITT, Nasrin Valdes Primary Care Physician Encounter [facility] [facility] ACCT [facility] [id number] Date(s): 07/05/21 - 08/04/21 [facility] Attending Physician: Millie Hannon Admitting Physician: Millie aHnnon Referring Physician: Millie Hannon Allergies, Adverse Reactions, Alerts Substance Reaction Severity [...] tablet, 0 Refills, Maintenance,06/26/21 9:45:00 EDT, Tablet, [facility] #[id number], Partial fill upon patient request if the [...] 12 puffs in one day. Label in omani, # 1 each, Refills 1, Tot. Refills 1, Maintenance, 02/01/21 8:29:00 EDT, In... Start Date: 02/01/21 Status: Ordered Problem List Condition Effective Dates Status Health Status Informant Other ovarian cyst, right Active side(Confirmed) Mild intermittent asthma(Confirmed) Active Social History Social History Type Response Smoking Status Never (less than 100 in life time) entered on: 06/26/21 Sex
== END 2022-09-04 18:38 | disposition home or self-care (01) ==
PROVIDERS: Emergency Provider Internal Medicine
DX: M54.50 Low back pain, unspecified (principal)
CPT/HCPCS: 72100; 99282; 99283

== ENCOUNTER 2023-03-13 18:28 | Emergency (ER) | payer OTHER, SELFPAY ==
--- NOTE | ~2023-03-13 | XR_ITS ---
X-RAY RIGHT HIP X-RAY RIGHT ANKLE CLINICAL HISTORY: Pain, injury. COMPARISON: No relevant prior studies are available for comparison. TECHNIQUE: 1 view of the pelvis, 2 views of the right hip and 3 views of the right ankle. FINDINGS: Pelvis and right hip: No acute fractures or subluxation. No significant soft tissue abnormality. Right ankle: No acute fractures or subluxation. No significant soft tissue abnormality. XR/XR ankle RT min 3V IMPRESSION: No acute osseous or soft tissue abnormalities.
--- NOTE | ~2023-03-13 | XR_ITS ---
X-RAY RIGHT HIP X-RAY RIGHT ANKLE CLINICAL HISTORY: Pain, injury. COMPARISON: No relevant prior studies are available for comparison. TECHNIQUE: 1 view of the pelvis, 2 views of the right hip and 3 views of the right ankle. FINDINGS: Pelvis and right hip: No acute fractures or subluxation. No significant soft tissue abnormality. Right ankle: No acute fractures or subluxation. No significant soft tissue abnormality. XR/XR hip RT w PEL1V IMPRESSION: No acute osseous or soft tissue abnormalities.
[2023-03-13 18:32] VITALS: BP 120/80; PULSE 70; O2SAT 98
[2023-03-13 19:07] VITALS: BP 105/62; PULSE 65; RESP 16; TEMP 36.1; O2SAT 99; BMI 25.3
--- NOTE | 2023-03-13 19:30 | PC.NURSE ---
pt a&ox3, xray performed, awaiting results
--- NOTE | 2023-03-13 19:39 | ED.GENADULT ---
HPI - General Adult General Chief complaint: Extremity Injury, Lower Stated complaint: Right ankle pain Time Seen by Provider: 03/13/23 19:38 Source: patient and EMS Mode of arrival: EMS Limitations: no limitations History of Present Illness HPI narrative: Patient is a 22 year old assigned female at with no reported medical history presenting to the emergency department today with right ankle and right hip pain. 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 Patient denies any head strike or loss of consciousness. Patient denies any dizziness, lightheadedness, abdominal pain, nausea, vomiting, fever, chills, blurry vision, double vision, loss of vision, chest pain, difficulty breathing, shortness of breath, back pain, night sweats, pain with urination, increased urinary frequency, increased urinary urgency, blood in her urine or stool, syncope or a near syncopal episode, bowel incontinence, bladder incontinence, bowel retention, bladder retention, or any other complaints at this time. Onset (ago): minute(s) Location: right and lower extremity Severity: mild Severity scale (1-10): 3 Quality: dull Pain Consistency: constant Relieving factors: none Exacerbating factors: none Associated symptoms: denies other symptoms Treatments prior to arrival: none Related Data Previous Rx's Medication Instructions Recorded ondansetron 4 mg disintegrating 4 mg PO Q8H PRN nausea and 05/19/22 tablet vomiting #20 tabs oxycodone 5 mg capsule 5 mg PO TID PRN pain #3 caps 09/04/22 prednisone 20 mg tablet 40 mg PO DAILY 5 days #10 tabs 09/04/22 Allergies Allergy/AdvReac Type Severity Reaction Status Date / Time No Known Allergies Allergy Verified 05/18/22 17:26 Review of Systems Constitutional: Constitutional: Reports no additional constitutional complaints, Denies chills, Denies fever(s) and Denies night sweats Eyes: Eyes: Reports no additional eye complaints, Denies blurry vision, Denies change in vision, Denies diplopia, Denies eye discharge, Denies loss of vision and Denies eye pain ENT: Denies dizziness Cardiovascular: Cardiovascular: Reports no additional cardiovascular complaints, Denies chest pain, Denies lightheadedness, Denies Loss of Consciousness and Denies dyspnea Respiratory: Respiratory: Reports no additional respiratory complaints and Denies dyspnea Gastrointestinal: Gastrointestinal: Reports no additional gastrointestinal complaints, Denies abdominal pain, Denies melena, Denies hematochezia, Denies change in bowel habits and Denies change in stool character Genitourinary: Genitourinary: Denies hematuria, Denies urinary frequency, Denies dysuria, Denies urinary incontinence, Denies urinary hesitancy and Denies urinary urgency Musculoskeletal: Musculoskeletal: Reports no additional musculoskeletal complaints, Denies numbness and Denies tingling Comments: right hip pain and right ankle pain Neurologic: Denies dizziness, Denies loss of vision, Denies numbness and Denies tingling Psychiatric: Psychiatric: Reports no additional psychiatric complaints Endocrine: Endocrine: Reports no additional endocrine complaints Hematologic/Lymphatic: Hematologic/Lymphatic: Reports no additional hematologic/lymphatic complaints Allergic/Immunologic: Allergic/Immunologic: Reports no additional allergic/immunologic complaints PMFSH Past Medical History Attestation statement: The following information was validated with the patient. Source: old records reviewed and nursing notes reviewed Medical History COVID-19 No pertinent past medical history Social History Social History Patient Tobacco Use Status: Never used Tobacco Advance Directives: No Advance Directives Information Provided: No Physical Exam ED Vital Signs: Vital Signs - 24 hr 03/13/23 19:07 Temperature 97.0 F Pulse Rate 65 Respiratory Rate 16 Blood Pressure 105/62 Pulse Oximetry 99 Oxygen Delivery Method Room Air BMI result Body Mass Index 25.3 Const General: cooperative, no acute distress, alert and awake Nutritional Appearance: well nourished Orientation/consciousness: patient oriented x3 Limitations: no limitations [facility] Head: Yes normal to inspection and Yes atraumatic Ears: hearing grossly normal bilaterally and external ears normal General nose exam: Normal external nose present, no nasal discharge noted and no epistaxis Face and sinus: Yes normal facial exam, No abrasion and No laceration Mouth: Normal oral and palatal mucosa present, no drooling and no muffled voice Eyes General: appearance normal, both eyes and all related structures Periorbital: periorbital findings normal Eyelids: Yes eyelids normal Conjunctivae: conjunctivae normal Pupils: Equal, round and reactive pupils present EOM: EOMs intact bilaterally Neck Neck: Yes normal visual inspection, Yes full ROM and Yes no lymphadenopathy Chest Chest palpation & inspection: normal inspection of the chest Resp Effort & Inspection: normal respiratory effort and able to speak in complete sentences GI Inspection: Yes normal to inspection Neuro General: patient oriented x3 and moves all extremities Cranial nerves: Yes Equal, round and reactive pupils present Cognition (Neuro): normal cognition Motor exam (neuro): 5/5 motor strength present throughout Sensory Exam: Normal double simultaneous stimulation for sensation Coordination: [id number] test normal Extrem General: Yes normal to inspection, Yes full ROM and Yes capillary refill normal Psych Appearance: grossly normal Mental Status: mental status grossly normal Affect: normal affect Attitude: cooperative Thought process: Normal thought process present Thought content: Normal thought content present Insight: Good insight present (Psych) Medical Decision Making Medical Decision Making MDM Narrative: Patient is a 22 year old assigned female at with no reported medical history presenting to the emergency department today with right ankle and right hip pain. Patient's physical exam was unremarkable. Patient's right hip and right ankle x-rays showed no acute process. I explained my physical exam findings as well as all test results to the patient. I answered all questions asked by the patient. I stressed the importance of the patient taking her medication as prescribed. I stressed the importance of the patient following up with her primary care provider and given that this was a work place injury, with [facility]. I stressed the importance of the patient returning to the emergency department immediately if her symptoms were to worsen or if she were to develop any dizziness, shortness of breath, difficulty breathing, chest pain, blurry vision, loss of vision, nausea, vomiting, abdominal pain, fever, chills, back pain, or any other complaints. Patient verbalized agreement and understanding with this treatment plan and discharge. Differential Diagnosis Differential Diagnoses: The differential diagnosis associated with the presentation includes Right ankle pain Right ankle sprain Right ankle strain Right hip pain Right hip strain Right hip sprain Independent Interpretation I performed an independent interpretation of an: Plain X-Ray Interpretation: My interpretation is in agreement with the radiologist's impression of these imaging studies. X-RAY RIGHT HIP X-RAY RIGHT ANKLE CLINICAL HISTORY: Pain, injury. COMPARISON:? No relevant prior studies are available for comparison. TECHNIQUE: 1 view of the pelvis, 2 views of the right hip and 3 views of the right ankle. FINDINGS:? Pelvis and right hip: No acute fractures or subluxation. No significant soft tissue abnormality. Right ankle: No acute fractures or subluxation. No significant soft tissue abnormality. XR/XR ankle RT min 3V IMPRESSION: No acute osseous or soft tissue abnormalities. Dictated By: Mickie Rodriguez Signed By: Electronically signed by Mickie Rodriguez 03/13/231912 Radiology Impression Discussion of test interpretation with radiology: I have reviewed the radiologist's reading. Independent Historian Clinical information obtained from an independent historian. History obtained from or confirmed by: EMS (EMS provided additional history and confirmed the history provided by the patient.) Prescription Management I considered prescription management with: Pain Medication (recommended patient take OTC pain medication.) Discharge Plan Discharge Clinical Impression: Ankle sprain and strain, Acute hip pain Patient Disposition: Home, Self-Care Instructions: Ankle Sprain (DC), Hip Pain (ED), Ankle Strain (ED) Additional Instructions: Follow up with your primary care provider. Return to the emergency department immediately if your symptoms worsen or if you develop any dizziness, shortness of breath, difficulty breathing, chest pain, blurry vision, loss of vision, nausea, vomiting, abdominal pain, fever, chills, back pain, or any other complaints. Prescriptions: No Action ondansetron 4 mg tablet,disintegrating 4 mg PO Q8H PRN (Reason: nausea and vomiting) Qty: 20 0RF oxycodone 5 mg capsule 5 mg PO TID PRN (Reason: pain) Qty: 3 0RF Rx Instructions: Partial Fill upon patient request. prednisone 20 mg tablet 40 mg PO DAILY 5 Days Qty: 10 0RF Referrals: [facility] [Provider Group] (Call to establish and follow up with [facility] as this was a workplace injury. [facility] [Primary Care Provider] - Stand Alone Forms: Work/School Release Interventions: ED Discharge Assessment Last Done: 03/13/23 19:55 Discharge Date/Time: 03/13/23 19:57 Print Language: Albanian
--- NOTE | 2023-03-13 19:56 | PC.NURSE ---
pt a&ox3, vss, pt imagine was negative, real wrap provided for patient comfort to rle, pt to discharge with boyfriend to home.
== END 2023-03-13 19:57 | disposition home or self-care (01) ==
PROVIDERS: Emergency Provider Emergency Medicine
DX: S93.401A Sprain of unspecified ligament of right ankle, initial encounter (principal); S96.911A Strain of unspecified muscle and tendon at ankle and foot level, right foot, initial encounter; W20.8XXA Other cause of strike by thrown, projected or falling object, initial encounter; M25.551 Pain in right hip; Y93.89 Activity, other specified; Y92.59 Other trade areas as the place of occurrence of the external cause; Y99.0 Civilian activity done for income or pay
CPT/HCPCS: 73502; 73610; 99282; 99283

== ENCOUNTER → 2023-10-02 13:19 | Outpatient (BNVA) | payer OTHER, SELFPAY | PROVIDERS: PCP Internal Medicine; Visit Provider Physician Assistant | DX: S73.101D Unspecified sprain of right hip, subsequent encounter (principal); S83.91XD Sprain of unspecified site of right knee, subsequent encounter; W18.09XD Striking against other object with subsequent fall, subsequent encounter | CPT/HCPCS: 99203 ==

== ENCOUNTER → 2023-10-16 10:28 | Outpatient (BNVA) | payer OTHER, SELFPAY | PROVIDERS: PCP Internal Medicine; Visit Provider Internal Medicine | DX: S86.111D Strain of other muscle(s) and tendon(s) of posterior muscle group at lower leg level, right leg, subsequent encounter (principal); S73.101D Unspecified sprain of right hip, subsequent encounter; W18.09XD Striking against other object with subsequent fall, subsequent encounter | CPT/HCPCS: 99213 ==

== ENCOUNTER 2023-10-21 11:47 | Outpatient (REF) | payer BC, SELFPAY ==
[2023-10-21 13:31] LABS: MANUAL DIFF FLAG NO
[2023-10-21 13:53] LABS: Basophils Percent Auto 0.4 % (0-2); Eosinophils Absolute Auto 0.1 X10*3/uL (0.0-0.4); Eosinophils Percent Auto 1.3 % (0-4); Hematocrit 38.7 % (37.0-47.0); Hemoglobin 12.7 g/dl (12.0-16.0); Imm Gran Abs Auto 0.05 X10*3/uL (0.00-0.03); Imm Gran Pct Auto 0.6 % (0.0-0.4); Lymphocytes Percent Auto 34.7 % (20-40); Mean Corpuscular HGB Conc 32.8 g/dl (31.0-35.0); Mean Corpuscular Hemoglobin 26.7 pg (27.0-33.0); Mean Corpuscular Volume 81.5 fL (80.0-98.0); Mean Platelet Volume 11.3 fL (9.4-12.3); Monocytes Absolute Auto 0.6 X10*3/uL (0.1-1.2); Monocytes Percent Auto 6.9 % (2-11); Neutrophils Absolute Auto 4.8 x10*3/uL (2.0-8.3); Neutrophils Percent Auto 56.1 % (45-73); Platelet Count 358 X10*3/uL (160-400); Red Blood Count 4.75 X10*6/uL (4.20-5.50); Red Cell Distribution Width 14.3 % (11.0-16.0); White Blood Count 8.5 X10*3/uL (4.8-10.8)
[2023-10-21 14:34] LABS: Alanine Aminotransferase 14 U/L (0-31); Albumin Level 4.1 g/dL (3.5-5.0); Alkaline Phosphatase 84 U/L (39-117); Anion Gap 7 (12-20); Aspartate Amino Transferase 19 U/L (5-31); Bilirubin Direct 0.2 mg/dL (0.0-0.5); Bilirubin Total 0.4 mg/dL (0.0-1.0); Blood Urea Nitrogen 12 mg/dL (9-16); Calcium 9.5 mg/dL (8.4-10.2); Carbon Dioxide 27 mmol/L (22-29); Chloride 107 mmol/L (96-108); Cholesterol 203 mg/dL (<200); Estimated Glomerular Filt Rate > 60; Glucose Random 87 mg/dL (60-115); HCG Quantitative < 2 mIU/mL; HDL Cholesterol 57 mg/dL (>40); LDL Cholesterol Calculated 130 mg/dL (<100); Potassium 4.3 mmol/L (3.3-5.1); Sodium 137 mmol/L (135-145); TSH reflex Free T4 1.97 uIU/mL (0.32-4.0); Total Protein 7.3 g/dL (6.5-8.0); Triglycerides 84 mg/dL (<150); Vitamin D 25-OH Total 30.4 ng/mL (>30)
[2023-10-21 15:12] LABS: Estimated Average Glucose 97 mg/dL
[2023-10-22 04:35] LABS: HIV AB/AG Nonreactive (Nonreactive); HIV Num 1 0.08 S/CO (0.00-0.99); ~HepC Num1 0.12 S/CO (0.00-0.79); ~Hepatitis C Antibody Nonreactive (Nonreactive)
== END 2023-10-21 11:48 | disposition home or self-care (01) ==
LOC: HO.HHCL 11:47
PROVIDERS: Visit Provider Internal Medicine
DX: Z00.00 Encounter for general adult medical examination without abnormal findings (principal); Z11.4 Encounter for screening for human immunodeficiency virus [HIV]; Z11.3 Encounter for screening for infections with a predominantly sexual mode of transmission; Z13.6 Encounter for screening for cardiovascular disorders; R11.0 Nausea
CPT/HCPCS: 36415; 80048; 80061; 80076; 82306; 83036; 84443; 84702; 85025; 86803; 87389

== ENCOUNTER → 2023-10-23 11:05 | Outpatient (BNVA) | payer OTHER, SELFPAY | PROVIDERS: PCP Internal Medicine; Visit Provider Internal Medicine | DX: S76.311D Strain of muscle, fascia and tendon of the posterior muscle group at thigh level, right thigh, subsequent encounter (principal); S73.101D Unspecified sprain of right hip, subsequent encounter; W18.09XD Striking against other object with subsequent fall, subsequent encounter | CPT/HCPCS: 99213 ==

== ENCOUNTER 2024-11-09 11:28 | Outpatient (REF) | payer MEDICAID, SELFPAY ==
--- NOTE | ~2024-11-09 | XR_ITS ---
EXAMINATION: XR LUMBAR SPINE 2-3 VIEWS HISTORY: chronic pain COMPARISON: Comparison is made with the prior examination dated 09/04/2022. FINDINGS: AP, lateral, and coned down views of the lumbar spine are submitted. Osseous mineralization is normal. Five nonrib-bearing lumbar vertebral bodies are identified, maintaining normal height without evidence of fracture or spondylolisthesis. There is rightward curvature which may be positional in nature. The intervertebral disc spaces are preserved. The posterior elements are intact. The visualized paraspinal soft tissues are unremarkable. XR/XR lumbar spine 2-3V IMPRESSION: Rightward curvature which may be positional in nature. Otherwise unremarkable examination of the lumbar spine. Electronically signed by: [place] MD 11/09/2024 11:40 AM EDT
--- OUTSIDE RECORDS SUMMARY | 2024-11-09 14:02 | XMS_ITS | Encounter Summary ---
Author Organization [employer] Address [address] [facility] 7t [place] [address] Care Team Providers Care Auto Body Mechanic Apprentice Name Role Phone Wendy Jimenez MD Primary Care Provide r Reason for Visit * Reason Onset Date Comments Nurse Triage 10/11/2024 Encounter Details Date Type Department Care Team (Late st Contact Info) Description 10/11/2024 Telephone [facility] MEDICINE [address], [place] [phone] Wendy Jimenez MD [address] [place], [place] [phone] Nurse Triage Social History Tobacco Use Types Packs/Day Years Used Date Smoking Tobacco: Every Day Cigarettes Passive Smoke Exposure: Never Smokeless Tobacco: Never Alcohol Use Standard Drinks/Week Comments Yes 0 (1 standard drink = 0.6 oz pur e alcohol) Rarely Depression Answer Date Recorded Patient Health Questionnaire-9 Score 0 10/21/2023 Patient Health Questionnaire-9 Score 0 10/21/2023 Last PHQ-9: Questionnaire Data Not on file 0 10/21/2023 Housing Stability Answer Date Recorded What is your housing situation today? I have taurus mays 10/21/[address] you li ve. Do you have problems with any of the following? None of the above 10/21/2023 Food Insecurity Answer Date Recorded Within the past 12 months, y ou worried that your food would run out before you got money to buy more: Never True 10/21/2023 Within the past 12 months,th e food you bought just didn't last and you didn't have enough money to get more: Never True Transportation Answer Date Recorded In the past 12 months, has l ack of transportation kept you from medical appts, meetings, work or from getting things needed for daily living? No 10/21/2023 Utilities Answer Date Recorded In the past 12 months, has t he electric, gas, oil or water company threatened to shut off services in your home? 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 Call returned to Jason Nath to triage below. Reports having vomiting since Thursday. Denies any green bile , blood or coffee grounds. Pt reports having one day of abd pain and diarrhea. Last episode of vomiting yesterday. Has had urine outputin past 8-10 hours. Per pt tolerating fluids. Subjective fever. Pt also endorses having dry cough. Pt has not done home kit for COVID-19. Pt advised of disposition, agrees to seek [facility] for exam as no sick on site availability on teams at time of call. Reviewed [facility] operating hours and that wait timesvary. Reviewed home care advise, ER precautions and reasons to call back. Protocol Used: Vomiting (Adult) Protocol-Based Disposition: Home Care Positive Triage Question: * Mild vomiting with diarrhea * All higher-acuity triage questions were negative Care Advice Discussed: * Reassurance and Education * Clear Liquids * Reasons To Call Back - Vomiting lasts for more than 2 days (48 hours) - You become worse * Telephone Encounter - Courtney Schuster - 10/11/2024 3:19 PM EST Symptoms: Vomiting, Weakness Outcome: Schedule a same-day appointment or talk to a nurse or provider today Reason: Caller denied all higher acuity questions The caller accepted this outcome. Contact pt at [phone] (denied animal feeder) documented in this encounter Plan of Treatment Not on file documented as of this encounter Visit Diagnoses Not on filedocumented in this encounter Additional Health Concerns Assessment Noted Time PHQ-9 Depression Total Score: 0 10/21/19 24 10:56 AM EST documented as of this encounter Care Teams Auto Body Mechanic Apprentice Relationship Specialty Start Date End Date Wendy Jimenez MD [address] [place] [address] PCP - General Family Medicine 10/15/21 documented as of this encounter
--- OUTSIDE RECORDS SUMMARY | 2024-11-09 14:02 | XMS_ITS | Data Portability ---
Author Organization [place] - [facility], [facility] Address [address] [place] [address] Assessment No assessment recorded. Plan of Treatment Reminders Order Date Submit Date Provider Last Modified By Organization Details Last Modified Time Details Appointments None recorded. Lab None recorded. Referral physical therapist referral - Evaluate & RxLumbar Stabilizati on Program+ pelvic stabilizati on 2023 024 [email or web address] Not available 4 11:33:19 Procedures None recorded. Surgeries None recorded. Imaging XR, lumbosacral spine, 2 or 3 view, bending only - 305- INCISING MACHINE OPERATOR 2v lumbar *not bending 2023 024 [email or web address] [facility] Office, [address], [facility] [address], [place], [address], 4 11:33:19 Medication Orders meloxicam 15 mg tablet 2023 024 [email or web address] [facility] #[id number], [address], [place], [address], 4 10:19:51 Patient TargetsNo targets recorded. Patient InstructionsNo instructions recorded. Reason for Referral Physical Therapist Referral for Low back pain Evaluate & RxLumbar Stabilization Program+ pelvic stabilization Referring Physician: Peyton Langley, Orthopedic Surgery, [id number] Encounter Date: 12/07/2023 Results Created Date Observation Date Name Description Value Unit Range Abnormal Flag Note LastModifiedBy Organization Detail LastModifiedTime 12/07/19 24 12/07/2023 XR, lumbo sacra l spine , 2 or 3 view, bendi ng only http:/ [email or web address]:[email or web address] ?Encry pted=s hAaTro YD8dLq bEUv6g %2BXZw aYqtaq 0bqfl% 2Fg9IQ a4ajBk vP9nXo QUaueC m3YtLR FvZlgJ JJ8mAn HZtai3 [id number] AC0Ksa H6FVqv eUC8mr 84%3D INTERFACE [facility] [address], [place], [address], 12/07/2023 09:02:21 04 24 12/07/2023 XR, lumbo sacra l spine , 2 or 3 view, bendi ng only http:/ [email or web address] ?Encry pted=s hAaTro YD8dLq bEUv6g %2BXZw aYqtaq 0bqfl% 2Fg9IQ a4ajBk vP9nXo QUaueC m3YtLR FvZl JJ8Benedict HZta 8w7445 AC0Ksa H6FVqv eUC8mr 84%3D INTERFACE [facility] [address], [place], [address], 12/07/2023 09:02:23 Result Notes None recorded. Procedures Surgical History None recorded. Imaging Results Imaging Date Name Status LastModified by Organiz ation Details LastModified Time 12/07/2023 XR, lumbosacral spine, 2 or 3 view, bending only completed INTERFACE [facility] [address], [place], [address], 12/07/2023 09:02:21 12/07/2023 XR, lumbosacral spine, 2 or 3 view, bending only completed INTERFACE [facility] [address], [place], [address], 12/07/2023 09:02:23 Procedure Notes None recorded. Medical Equipment None Reported. Allergies No known drug allergies Medications Name Sig Start Date Stop Date Status Note LastModified by Organization Details LastModified Time ibuprofen 800 mg tablet TOME SHAQUILLE TABLETA POR V A ORAL 3 TIMES A DAY FOR PAIN SWELLING active Not Available Not Available No t Available meloxicam 15 mg tablet Take 1 tablet every day by oral route after meal(s). active Not Available Not Available No t Available Vitals Date Recorded Body height Body mass index (BMI) Body weight Provider Name and Address Organization Details Last Updated DateTime 12/07/2023 154.94 cm 26.1 kg/m2 68225.75 g Xiomara martin [place] - [facility] 12/07/2023 08:49:25 Social History None recorded. Functional Status None recorded. Mental Status None recorded. Family History Nothing Reported. Medical History No medical history recorded. Gynecological HistoryNo gynecological history recorded. Obstetrics History GPAL:G 0 P 0 0 0 0 Past Encounters Encounter ID Performer Location Encounter Start Date Encounter Closed Date Diagnosis/Indication Diagnosis SNOMED-CT Code Diagnosis ICD10 Code Diagnosis Note [id number] [facility] 3[address] floor [address] [place] [address] 12/07/2023 08:37:51 12/24/2023 11:33:18 Low back pain 075220367 M54.50 Lumbar radiculitis 89047 83826 8399352 M54.16 Health Concerns Section Related Observation LastModified by Organization Detai ls LastModified Time None Recorded Concern Status LastModified by Organization Details LastModified Time None Recorded Advance Directives Directive None Recorded Payers Encounter Date Sequence Insurance Name Policy Number Policy Moran Covered Member ID Moran Member ID Guarantor Name 12/07/2023 1 [facility] [id number] Jason Nath [id number] Jason Nath Notes Date Note Type Note Provider Name and Address Organization Details Recorded Time 12/07/2023 text/html I am seeing the patient today under the supervision of Dr. Cruz who was available but who did not see the patient. HPI: Patient presents for evaluation of ongoing low back pain. Patient reports radiating left leg pain that radiates to the posterior knee. Standing and walking worse than sitting, she denies pain at rest her pain at its worse is a 7/10. 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 Worsening over time. Denies bowel or bladder dysfunction. She reports she has tried PT last year in october, she has used gabapentin, ibuprofen and naproxen all at different time; she reports ibuprofen and icy hot are the only things that alleviate her pain. TREATMENTS: Activity modification, PT exercise core strengthening lumbar stabilization program a year ago, and NSAIDs. Past family, medical, social history and review of systems has been reviewed, updated and signed by me and is located in the patient? ? ?s chart. Examination: The patient is well appearing, alert and oriented x3 and in no acute distress. Gait is antalgic. Inspection of the spine reveals no step off, deformity or overlying skin changes. Range of motion of the lumbar spine is 100% of normal. Range of motion of the hip and knees full without discomfort. The spine is nontender over the paravertebral musculature. Nontender over the greater trochanters. Straight leg raise is negative on the affected side. Strength and sensation intact. Re? e xes normal. No ankle clonus. X-rays ordered, obtained and reviewed at [facility], 2 views of the lumbar spine reveals no fractures, instability or bony lesions or Degenerative disc disease noted. Impression/Plan: Sciatic nerve compression due to lumbar and pelvic muscle weakness. Discussed the nature of the problem with the patient. Discussed conservative treatment options such as PT lumbar stabilization program, a trial of Mobic Discussed further imaging such as MRI if symptoms do not improve following PT course. Patient endorsed at this time she was recently denied an MRi by her insurance company plan to trial Mobic and another course of PT prior to follow up and further imaging PRN. Follow-up will be arranged in 8 weeks. [facility] speech recognition valve assembler software was used to create portions of this document. An attempt at proofreading has been made to minimize errors. Please call for corrections. Peyton Langley PA-C [address] [facility] [address], [place], [address], [facility] 12/09/2023 09:46:32 OBGyn Episode No OBEpisode recorded.
--- OUTSIDE RECORDS SUMMARY | 2024-11-09 14:02 | XMS_ITS | Encounter Summary ---
Author Organization [employer] Address [address] [facility] [address] [place] [address] Care Team Providers Care Journeyman Pressman Name Role Phone Wendy Jimenez MD Primary Care Provide r Reason for Visit * Reason Comments Pre-visit Planning SDOH screening negat bridger and tobacco screening negative Encounter Details Date Type Department Care Team ([facility] st Contact Info) Description 11/01/2024 Patient Outreach [facility] MEDICINE [address] [place], [place] [phone] Wendy Jimenez MD [address] [place], [place] [phone] Pre-visit Planning (SDOH screening negative and tobacco screening negative) Social History Tobacco Use Types Packs/Day Years [...] housing situation today? I have taurus mays 11/01/[address] you li ve. Do you have problems with any of the following? None of the above 11/01/2024 Food Insecurity Answer Date Recorded Within the past 12 months, y ou worried that your food would run out before you got money to buy more: Never True 11/01/2024 Within the past 12 months,th e food you bought just didn't last and you didn't have enough money to get more: Never True 06/2025 Transportation Answer Date Recorded In the past 12 months, has l ack of transportation kept you from medical appts, meetings, work or from getting things needed for daily living? No 11/01/2024 Utilities Answer Date Recorded In the past 12 months, has t he electric, gas, oil or water company threatened to shut off services in your home? No 11/01/2024 Depression Answer Date Recorded Patient Health Questionnaire-2 Score 0 10/21/2023 Internet Access Answer Date Recorded Internet Access Q1 Yes 11/01/2024 Internet Access Q2 Not on file 11/01/2024 Comments Unknown Sex and Gender Information Value Date Recorded Sex Assigned at Female 06/23/2022 10:39 AM EDT Legal Sex Female 10:39 AM EDT Gender Identity Female 06/23/2022 10:39 AM EDT Sexual Orientation Choose not to disclose 2021 10:39 AM EDT documented as of this encounter Progress Notes * Nilda Roger - 11/01/2024 11:10 AM EDT CC Nilda placed successful outbound call to patient for pre-visit planning. Patient name and confirmed. Patient confirms appt date and time, and has transportation. Biggest concern for appointment at this time is none Patient advised to bring to appointment a photo id and insurance card. Appropriate screenings completed in anticipation of appointment. documented in this encounter Plan of Treatment Not on file documented as of this encounter Visit Diagnoses Not on filedocumented in this encounter Additional Health Concerns Assessment Noted Time PHQ-9 Depression Total Score: 0 10/21/19 24 10:56 AM EST documented as of this encounter Care Teams Journeyman Pressman Relationship Specialty Start Date End Date Wendy Jimenez MD [address] [place] [address] PCP - General Family Medicine 10/15/21 documented as of this encounter
--- OUTSIDE RECORDS SUMMARY | 2024-11-09 14:02 | XMS_ITS | Encounter Summary ---
Author Organization [employer] Address [address] [facility] [address] [address] [place] [address] Care Team Providers Care Briquetting Machine Operator Name Role Phone Wendy Jimenez MD Primary Care Provide r Encounter Details Date Type Department Care Team (Latest Contact Info) Description 11/09/2024 Travel Social History Tobacco Use Types Packs/Day Years [...] Date Recorded Patient Health Questionnaire-2 Score 0 11/09/2024 Internet Access Answer Date Recorded Internet Access Q1 Yes 11/01/2024 Internet Access Q2 Not on file 11/01/2024 Comments No Sex and Gender Information Value Date Recorded Sex Assigned at Female 06/23/2022 10:39 AM EDT Legal Sex Female 10:39 AM EDT Gender Identity Female 06/23/2022 10:39 AM EDT Sexual Orientation Choose not to disclose 2021 10:39 AM EDT documented as of this encounter Plan of Treatment Not on file documented as of this encounter Visit Diagnoses Not on filedocumented in this encounter Additional Health Concerns Assessment Noted Time PHQ-9 Depression Total Score: 0 10/21/19 24 10:56 AM EST documented as of this encounter Care Teams Briquetting Machine Operator Relationship Specialty Start Date End Date Wendy Jimenez MD [address] [place] [address] PCP - General Family Medicine 10/15/21 documented as of this encounter
--- OUTSIDE RECORDS SUMMARY | 2024-11-09 14:02 | XMS_ITS | Encounter Summary ---
Author Organization [employer] Address [address] [facility] 7t [place] [address] Care Team Providers Care Identification Technician Name Role Phone Wendy Jiemnez MD Primary Care Provide r Reason for Referral * Consultation (Routine) - Pending Review Specialty Diagnoses / Procedures Referred By Lenka mccormick Referred To Contact Orthopaedic Surgery Diagnoses Chronic right-sided low back pain with right-sided sciatica Wendy Jimenez MD [address] [place] [phone] Phone: tel: fax: Referral ID Status Reason Start Date Expiration Date Visits Requested Visits Authorized [id number] Pending Review Specialty Services Required 11/09/2024 11/09/2025 1 1 Encounter Details Date Type Department Care Team (Late st Contact Info) Description 11/09/2024 10:45 AM EDT Office Visit [facility] MEDICINE [address] [place] [phone] Wendy Jimenez MD [address] [place], [place] [phone] Encounter for preventive care (Primary Dx); Chronic right-sided low back pain with right-sided sciatica Social History Tobacco Use Types Packs/Day Years [...] AM EDT documented as of this encounter Last Filed Vital Signs Vital Sign Reading Time Taken Comments Blood Pressure 110/72 11/09/2024 10:57 AM EDT Pulse 78 11/09/2024 10:57 AM EDT Temperature 35.4 ??C (95.8 ??F) 11/09/2024 10:57 AM E DT Respiratory Rate 20 11/09/2024 10:57 AM EDT Oxygen Saturation - - Inhaled Oxygen Concentration - - Weight 62.1 kg (137 lb) 11/09/2024 10:57 AM EDT Height 154.9 cm (5' 1 ) 11/09/2024 10:57 AM EDT Body Mass Index 25.89 11/09/2024 10:57 AM EDT documented in this encounter Plan of Treatment Scheduled Orders Name Type Priority Associated Diagnoses Orde r Schedule CBC auto differential Lab Routine Encounter for preventive care Expected: 11/09/2024 (Approximate), Expires: 11/09/2025 Comprehensive Metabolic Panel Lab Routine Encounter for preventive care Expected: 11/09/2024 (Approximate), Expires: 11/09/2025 Hemoglobin A1c Lab Routine Encounter for preventive care Expected: 11/09/2024 (Approximate), Expires: 11/09/2025 HIV-1/2 Antigen and Antibodies, Fourth Generation, with Reflexes Lab Routine Encounter for preventive care Expected: 11/09/2024 (Approximate), Expires: 11/09/2025 Hepatitis C Antibody with Reflex to HCV, RNA, Quantitative, Real-Time PCR Lab Routine Encounter for preventive care Expected: 11/09/2024, Expires: 11/09/2025 Lipid Panel, Standard Lab Routine Encounter for preventive care Expected: 11/09/2024 (Approximate), Expires: 11/09/2025 Vitamin D, 25-Hydroxy, Total, Immunoassay Lab Routine Encounter for preventive care Expected: 11/09/2024 (Approximate), Expires: 11/09/2025 TSH with Reflex to Free T4 Lab Routine Encounter for preventive care Expected: 11/09/2024 (Approximate), Expires: 11/09/2025 Chlamydia/N. Gonorrhoeae RNA, TMA, Urogenitial Microbiology Routine Encounter for preventive care Ordered: 11/09/2024 Scheduled Referrals Name Type Priority Associated Diagnoses Order Schedule Referral to Orthopaedic Surgery Outpatient Referral Routine Chronic right-sided low back pain with right-sided sciatica Expected: 11/09/2024 (Approximate), Expires: 11/09/2025 documented as of this encounter Procedures Procedure Name Priority Date/Time Associated Diagnosis Comments XR LUMBAR SPINE 2-3 VIEWS Routine 11/09/2024 11:28 AM EDT Chronic right-sided low back pain with right-sided sciatica documented in this encounter Results * XR Lumbar Spine 2-3 Views (11/09/2024 11:28 AM EDT) Anatomical Region Laterality Modality Spine, L-spine Radiographic Marjorie ging 11/09/2024 11:2 8 AM EDT Narrative 11/09/2024 11:43 AM EDT ?[facility] ?[address] ?[place] [address] ?XRay Report ? Signed ? Patient: Pham,Jason ?MR#: [id number] ?? 12 ? : 2000 ?Acct:[id number] ? Age/Sex: 23 / F ?ADM Date: 11/09/24 ? Loc: HO.HHCX ? Attending Dr: Wendy Donahue MD ? Ordering Physician: Wendy Jimenez MD ?? Date of Service: 11/09/24 ?? Procedure(s): XR lumbar spine 2-3V ?? Accession Number(s): [id number] ? cc: Wendy Jimenez MD ? EXAMINATION: ??XR LUMBAR SPINE 2-3 VIEWS ? HISTORY: chronic pain ? COMPARISON: Comparison is made with the prior examination dated ?? 09/04/2022. ? FINDINGS: ??AP, lateral, and coned down views of the lumbar spine are ?? submitted. ??Osseous mineralization is normal. ??Five nonrib-bearing ?? lumbar vertebral bodies are identified, maintaining normal height ?? without evidence of fracture or spondylolisthesis. There is rightward ?? curvature which may be positional in nature. ??The intervertebral disc ?? spaces are preserved. ??The posterior elements are intact. ??The ?? visualized paraspinal soft tissues are unremarkable. ? XR/XR lumbar spine 2-3V ?? IMPRESSION: ?? Rightward curvature which may be positional in nature. Otherwise ?? unremarkable examination of the lumbar spine. ? Electronically signed by: ??[place] MD ??11/09/2024 11:40 AM EDT ?? RP ? Dictated By: ?[place] MD ? Signed By: ?<Electronically signed by [place] MD in OV> ?11/09/24 1140 ? DD/ 1128 ? TD/TT: 11/09/24 1137 ? Transmitter Operator: ? Procedure Note Sam Lora - 11/09/2024 [facility] [address] [place] [address] XRay Report Signed Patient: Mynor Nath#: [id number] [birth year] : 2000Acct:[id number] Age/Sex: 23 / FADM Date: 11/09/24 Loc: HO.HHCX Attending Dr: Wendy Donahue MD Ordering Physician: Wendy Jimenez MD Date of Service: 11/09/24 Procedure(s): XR lumbar spine 2-3V Accession Number(s): [id number] cc: Wendy Jimenez MD EXAMINATION: XR LUMBAR SPINE 2-3 VIEWS HISTORY: chronic pain COMPARISON: Comparison is made with the prior examination dated 09/04/2022. FINDINGS: AP, lateral, and coned down views of the lumbar spine are submitted. Osseous mineralization is normal. Five nonrib-bearing lumbar vertebral bodies are identified, maintaining normal height without evidence of fracture or spondylolisthesis. There is rightward curvature which may be positional in nature. The intervertebral disc spaces are preserved. The posterior elements are intact. The visualized paraspinal soft tissues are unremarkable. XR/XR lumbar spine 2-3V IMPRESSION: Rightward curvature which may be positional in nature. Otherwise unremarkable examination of the lumbar spine. Electronically signed by: [place] MD 11/09/2024 11:40 AM EDT Dictated By: [place] MD Signed By: <Electronically signed by [place] MD in OV> 11/09/24 1140 DD/ 1128 TD/TT: 11/09/24 1137 Transmitter Operator: Wendy Donahue MD IMG XR PROCEDURES Fin al Result documented in this encounter Visit Diagnoses Diagnosis Encounter for preventive care- Primary Chronic right-sided low back pain with right-sided sciatica documented in this encounter Additional Health Concerns Assessment Noted Time PHQ-9 Depression Total Score: 0 10/21/19 10:56 AM EST documented as of this encounter Care Teams Identification Technician Relationship Specialty Start Date End Date Wendy Jimenez MD [address] [place] [address] PCP - General Family Medicine 10/15/21 documented as of this encounter
--- OUTSIDE RECORDS SUMMARY | 2024-11-09 14:03 | XMS_ITS | Clinical Summary ---
Author Organization [facility] ity Address [address] [place] [address] Care Team Providers Care Website Programmer Name Role Phone Unavailable Primary Care Provider Unavailabl e Social History Tobacco Use Types Packs/Day Years Used Date Smoking Tobacco: Never Assessed Comments Unknown Sex and Gender Information Value Date Recorded Sex Assigned at Not on file Legal Sex Female 5:08 AM EST Gender Identity Not on file Sexual Orientation Not on file Plan of Treatment Health Maintenance Due Date Last Done Comments Gonorrhea/Chlamydia Screening 2000 HPV Vaccines (1 - 3-dose series) 12/16/2015 Meningococcal B Vacine (1 of 2 - Standard) 2016 DTaP,Tdap,and Td Vaccines (1 - Tdap) 12/16/2019 Hepatitis B Vaccines (1 of 3 - 19+ 3-dose series) 12/16/2019 Cervical Cancer Screening: P ap Smear 2021 COVID-19 Vaccine ( - 2023-2 5 season) 2024 Influenza Vaccine (#1) 2024 HIB Vaccines Aged Out No longer eligi ble based on patient's age to complete this topic Hepatitis A Vaccines Aged Out No long er eligible based on patient's age to complete this topic IPV Vaccines Aged Out No longer eligi ble based on patient's age to complete this topic MMR Vaccines Aged Out No longer eligi ble based on patient's age to complete this topic Meningococcal ACWY Vaccine Aged Out N o longer eligible based on patient's age to complete this topic Pneumococcal Vaccine: Pediat rics (0 to 5 Years) and At-Risk Patients (6 to 64 Years) Aged Out No longer eligible b ased on patient's age to complete this topic RSV Immunization Patients Un paulina 20 months Aged Out No longer eligible b ased on patient's age to complete this topic Varicella Vaccines Aged Out No longer eligible based on patient's age to complete this topic
--- OUTSIDE RECORDS SUMMARY | 2024-11-09 14:03 | XMS_ITS | Clinical Summary ---
Author Organization [employer] Address [address] [place] [address] Care Team Providers Care Managed Security Sales Consultant Name Role Phone Wendy Jimenez MD Primary Care Provide r Allergies No known active allergies Medications hydrOXYzine HCl (Atarax) 25 MG tablet Take 25 mg by mouth if needed in the morning and at bedtime. 2 Active sertraline (Zoloft) 25 MG tablet Take 25 mg by mouth in the morning. 2 Active Diclofenac Sodium 1 % gelIndications:Pi riformis syndrome of left side Apply 2 g topically if needed in the morning and at bedtime (pain). 150 g 2 3 Active gabapentin (Neurontin) 100 MG capsule Take 1 capsule (100 mg) by mouth 3 times daily. 90 capsule 2 3 Active baclofen (Lioresal) 10 MG tablet Take 1 tablet (10 mg) by mouth if needed in the morning, at noon, and at bedtime for muscle spasms. 60 tablet 1 3 Active albuterol 108 (90 Base) MCG/ACT inhalerIndication s:Mild intermittent asthma without complication Inhale 2 puffs every 4 (four) hours if needed for wheezing or shortness of breath. 18 g 1 4 Active famotidine (Pepcid) 20 MG tabletIndications :Heartburn Take 1 tablet (20 mg) by mouth 2 times daily. 60 tablet 4 Active Active Problems Problem Noted Date Diagnosed Date Acute cystitis without hematuria 09/09/2024 Assessment & Plan (09/09/2024 4:37 PM EST): Drink plenty of water do not hold urine Missed period 09/09/2024 Dyslipidemia 11/18/2023 Assessment & Plan (11/18/2023 11:38 AM EDT): Today extensive discussion was done about life style modifications I advise healthy diet (low calorie) and cardiovascular exercise BMI 25.0-25.9,adult 11/18/2023 Blurred vision, bilateral 10/21/2023 Chronic right-sided low back pain with right-shonda ed sciatica 10/21/2023 Assessment & Plan (10/21/2023 1:49 PM EST): Apply heat on affected area Acetaminophen PRN XRAY ordered Orthopedics referral Encounter for preventive care 10/21/2023 Assessment & Plan (10/21/2023 1:49 PM EST): See HPI Nausea 10/21/2023 Heartburn 10/21/2023 Assessment & Plan (10/21/2023 1:50 PM EST): I advise patient to avoid NSAIDs, spicy and acid food, I advise to eat at the same time every day, I advise to elevate the head of the bed and take medications as prescribe Keloid scar 08/29/2022 Mild intermittent asthma 08/29/2022 Assessment & Plan (11/18/2023 11:39 AM EDT): Controlled c/w current intervention Mixed anxiety and depressive disorder 08/29/2022 Assessment & Plan (11/18/2023 11:38 AM EDT): Controlled c/w current interventions Assessment & Plan (10/21/2023 1:48 PM EST): Control now c/w current interventions Resolved Problems Problem Noted Date Diagnosed Date Resolved Date Dog bite 08/29/2022 07/08/2023 Homeless 08/29/2022 10/21/2022 Right leg pain 08/29/2022 07/08/2023 Encounters Date Type Department Care Team Description 11/09/2024 10:45 AM EDT Office Visit [address] [phone] Wendy Jimenez MD Encounter for preventive care (Primary Dx); Chronic right-sided low back pain with right-sided sciatica 11/09/2024 Travel 11/01/2024 Patient Outreach [address] [address] Wendy Jimenez MD Pre-visit Planning (SDOH screening negative and tobacco screening negative) 10/11/[address] [address] Wendy Jimenez MD Nurse Triage 09/27/[address] [address] Mark Marquis [place] NOVEMBER RECALL 09/09/2024 2:30 PM EST Office Visit [address] [phone] Wendy Jimenez MD Acute cystitis without hematuria (Primary Dx); Missed period 09/09/[address] [address] Wendy Jimenez MD 09/09/2024 Travel 09/09/[address] [address] Wendy Jimenez MD Nurse Triage from Last 3 Months Immunizations Name Administration Dates Next Due DTaP 04/03/2005,03/03/2002,06/07/2001 ,03/13/2001 HPV, Quadrivalent 03/28/2013,05/01/2012 Hep B, Adolescent or Pediatric 04/21/2002,2000,03/13/2001 Hib (PRP-T) 04/21/2002,06/07/2001,03/13/2001 IPV 04/03/2005,08/13/2001,06/07/2001 ,03/13/2001 Influenza, IIV3, injectable 09/21/2017, 3 MMR 04/03/2005,01/11/2002 Meningococcal ACWY, unspecified 09/21/2017,03/28 Pfizer Covid-19 Vaccine 12+ 04/02/2021, Pneumococcal Conjugate PCV 7 03/13/2001 Rabies Immune Globulin 09/13/2021 Rabies, IM Diploid Cell Culture 09/20/2021,09/16,09/13/2021 Tdap 09/13/2021,05/01/2012 Varicella 05/01/2012,01/11/2002 Social History Tobacco Use Types Packs/Day Years Used Date Smoking Tobacco: Every Day Cigarettes Passive Smoke Exposure: Never Smokeless Tobacco: Never Tobacco Cessation:Ready to Q uit: Not Asked; Counseling Given: Not Answered Alcohol Use Standard Drinks/Week Comments Yes 0 [...] not to disclose 2021 10:39 AM EDT Last Filed Vital Signs Vital Sign Reading Time Taken Comments Blood Pressure 110/72 11/09/2024 10:57 AM EDT Pulse 78 11/09/2024 10:57 AM EDT Temperature 35.4 ??C (95.8 ??F) 11/09/2024 10:57 AM E DT Respiratory Rate 20 11/09/2024 10:57 AM EDT Oxygen Saturation 95% 10/21/2023 10:55 AM EST Inhaled Oxygen Concentration - - Weight 62.1 kg (137 lb) 11/09/2024 10:57 AM EDT Height 154.9 cm (5' 1 ) 11/09/2024 10:57 AM EDT Body Mass Index 25.89 11/09/2024 10:57 AM EDT Plan of Treatment Health Maintenance Due Date Last Done Comments Chlamydia and Gonorrhea Screening 2000 Family Planning (PISQ) 12/16/2015 Pneumococcal Vaccine: Pediatrics (0 to 5 Years) and At-Risk Patients (6 to 49) Years) (1 of 2 - PCV) 12/16/2019 03/13/2001 Pap Smear 2021 Dental Oral Exam 08/08/2023 02/05/2023 Dental Prophylaxis 08/08/2023 02/05/2023 Dental X-Ray: Bitewings 02/07/2024 02/05/2023 COVID-19 Vaccine ( season) 2024 04/02/2021, 03/12/2021 Influenza Vaccine (#1) 2024 09/21/2017, 2012 SDOH Screening 11/01/2025 11/01/2024 Alcohol/Substance Use Screening 11/09/2025 11/09/2024 Depression Screening 11/09/2025 11/09/2024, 10/21/19 Tobacco Screening 11/09/2025 11/09/2024 Dental X-Ray: Full Mouth 02/06/2026 02/05/2023 Lipid Panel 10/21/2028 10/21/2023 DTaP/Tdap/Td Vaccines (7 - Td or Tdap) 09/13/2031 09/13/2021, 05/01/2012, 04/03/2005, Additional history exists Zoster Vaccines (1 of 2) 2050 RSV Patients and Patients Aged 60 years or older (1 - 1-dose 75+ series) 12/16/2075 HIB Vaccines Completed 04/21/2002, 05/24, 03/13/2001 Hepatitis B Vaccines Completed 04/21/2002, 06/07/2001, 03/13/2001 IPV Vaccines Completed 04/03/2005, 07/25, 06/07/2001, Additional history exists HPV Vaccines Completed 03/28/2013, 05/01/2012 Meningococcal Vaccine Completed 09/21/2017, 013 HIV Screening Completed 10/21/2023 Hepatitis C Screening Completed 10/21/2023 Hepatitis A Vaccines Aged Out No long er eligible based on patient's age to complete this topic RSV under 20 months Aged Out No longe r eligible based on patient's age to complete this topic Rotavirus Vaccines Aged Out No longer eligible based on patient's age to complete this topic Procedures Procedure Name Priority Date/Time Associated Diagnosis Comments XR LUMBAR SPINE 2-3 VIEWS Routine 11/09/2024 11:28 AM EDT Chronic right-sided low back pain with right-sided sciatica POCT URINALYSIS DIPSTICK Routine 09/09/2024 3:46 PM EST Acute cystitis without hematuria POCT , URINE Routine 09/09/2024 3:45 PM EST Missed period CULTURE, URINE, ROUTINE Routine 09/09/2024 3:00 PM EST Acute cystitis without hematuria HEPATITIS C AB W/REFL TO HCV RNA, QN, PCR Routine 10/21/2023 11:50 AM EST Encounter for preventive care HIV 1/2 ANTIGEN/ANTIBODY, FOURTH GENERATION W/RFL Routine 10/21/2023 11:50 AM EST Encounter for preventive care LIPID PANEL, STANDARD Routine 10/21/2023 11:50 AM EST Encounter for preventive care PROPHYLAXIS - ADULT Routine 02/05/2023 9 :00 AM EDT Encounter for dental examination INTRAORAL - COMPLETE SERIES OF RADIOGRAPHIC IMAGES Routine 02/05/2023 9:00 AM EDT Encounter for dental examination COMPREHENSIVE ORAL EVALUATION - NEW OR ESTABLISHED PATIENT Routine 02/05/2023 9:00 AM EDT from Last 3 Months or Most Recently Relevant to Health Maintenance Results * XR Lumbar Spine 2-3 Views (11/09/2024 11:28 AM EDT) Anatomical Region Laterality Modality Spine, L-spine Radiographic Marjorie ging 11/09/2024 11:2 8 AM EDT Narrative 11/09/2024 11:43 AM EDT ?[facility] ?[address] ?[place] [address] ?XRay Report ? Signed ? Patient: Jason Nath ?MR#: [id number] ?? 12 ? : 2000 ?Acct:[id number] ? Age/Sex: 23 / F ?ADM Date: 11/09/24 ? Loc: HO.HHCX ? Attending Dr: Wendy Donahue MD ? Ordering Physician: Wendy Jimenez MD ?? Date of Service: 11/09/24 ?? Procedure(s): XR lumbar spine 2-3V ?? Accession Number(s): [id number] ? cc: Wendy Jimenez MD ? EXAMINATION: [...] DD/ 1128 ? TD/TT: 11/09/24 1137 ? Rail Operations Controller: ? Procedure Note Donyanick, Image - 11/09/[address] [address] XRay Report Signed Patient: Mynor Nath#: [id number] [birth year] : 2000Acct:[id number] Age/Sex: 23 FADM Date: 11/09/24 Loc: HO.HHCX Attending Dr: Wendy Donahue MD Ordering Physician: Wendy Jimenez MD Date of Service: 11/09/24 Procedure(s): XR lumbar spine 2-3V Accession Number(s): [id number] cc: Wendy Jimenez MD EXAMINATION: XR LUMBAR [...] 11/09/24 1140 DD/ 1128 TD/TT: 11/09/24 1137 Rail Operations Controller: Wendy Donahue MD IMG XR PROCEDURES Fin al Result * (ABNORMAL) POCT urinalysis dipstick manually resulted (09/09/2024 3:46 PM EST) Color, UA Light Yellow Clarity, UA Cloudy Glucose, UA Negative Bilirubin, UA Negative Ketones, UA Negative Spec Grav, UA 1.020 Blood, UA Positive(A) Negative, None Detected Comment:trace intact pH, UA 6.5 Protein, UA Negative Urobilinogen, UA 0.2 Leukocytes, UA Many(A) Negative, Rare, Trace Comment:large Nitrite, UA Positive(A) Negative, None Detected QC Media Lot # [id number] Lot# Expiration Date [id number] Urine 09/09/2024 3:46 PM EST Result [facility] Wendy Donahue MD POINT OF CARE TEST EN TER/EDIT ORDERABLES Final Result * POCT , urine manually resulted (09/09/2024 3:45 PM EST) Preg Test, Ur Negative Negative, Indeterminate, None Detected, Invalid, Specimen unsatisfactory for evaluation, Weakly Positive QC Media Lot # [id number] Lot# Expiration Date 103,125 Urine 09/09/2024 3:45 PM EST Wendy Donahue MD POINT OF CARE TEST EN TER/EDIT ORDERABLES Final Result * Culture, Urine, Routine (09/09/2024 3:00 PM EST) Urine Urine specimen obtained by clean catch procedure / Unknown 09/09/2024 3:00 PM EST 09/09/2024 6:25 PM EST Comment:[facility] Narrative [facility] - 09/12/2024 12:11 PM EST Escherichia coli Quant > 100,000 cfu/mL Strep agalactiae (Grp B) Quant 50,000 to 100,000 cfu/mL Susc N/A Susceptibility not routinely performed on this isolate. Escherichia coli: Ampicillin <=2(S) Escherichia coli: Cefazolin (Urine) <=1(S) Escherichia coli: Cefepime <=0.12(S) Escherichia coli: Ceftriaxone <=0.25(S) Escherichia coli: Ciprofloxacin <=0.06(S) Escherichia coli: Gentamicin <=1(S) Escherichia coli: Nitrofurantoin <=16(S) Escherichia coli: Trimethoprim/Sulfamethoxazole <=20(S) Specimen Source: Urine clean catch us Wendy Donahue MD LAB MICROBIOLOGY - GE NERAL ORDERABLES Final Result Performing Organization Address [facility] Co de Phone Number [facility] [address] [place] [phone] * Hepatitis C Antibody with Reflex to HCV, RNA, Quantitative, Real-Time PCR (10/21/2023 11:50 AM EST) Hepatitis C Antibody Nonreactive Nonreactive [facility] Comment:Antibodies to HCV no t detected; does not exclude early acuteHCV infection. Blood Venous blood specimen / Unknown 10/21/2023 11:50 AM EST 10/21/2023 1:25 PM EST us Wendy Donahue MD LAB BLOOD ORDERABLES Final Result Performing Organization Address [facility] Co de Phone Number [facility] [address] [place] [phone] * HIV-1/2 Antigen and Antibodies, Fourth Generation, with Reflexes (10/21/2023 11:50 AM EST) HIV AB/AG Nonreactive Nonreactive [facility] Comment:HIV-1 p24 Ag and/or HIV-1/HIV-2 Ab not detected.A test result that is nonreactive does not exclude thepossibility of exposure to or infection with HIV-1 and/orHIV-2. Nonreactive results in this assay for individualswith prior exposure to HIV-1 and/or HIV-2 may be due toantigen and antibody levels that are below the limit ofdetection of this assay.The Enefgy HIV Ag/Ab Combo assay result andsupplemental assay results should be interpreted inconjunction with the patient's clinical presentation,history and other laboratory results. If the results areinconsistent with clinical evidence, additional testing issuggested to confirm the result. Blood Venous blood specimen / Unknown 10/21/2023 11:50 AM EST 10/21/2023 1:25 PM EST us Wendy Donahue MD LAB BLOOD ORDERABLES Final Result Performing Organization Address [facility] Co de Phone Number [facility] [address] [place] [address] [phone] * (ABNORMAL) Lipid Panel, Standard (10/21/2023 11:50 AM EST) Triglycerides 84 <150 mg/dL [facility] Comment:Desirable Triglyceri de: less than 150 mg/dLBorderline High Triglyceride 150-199 mg/dLHigh Triglyceride: 200-499 mg/dLVery High Triglyceride: greater than or equal to 5OO mg/dL Cholesterol 203(H) <200 mg/dL [facility] Comment:Desirable Cholestero l: less than 200 mg/dLBorderline High Cholesterol: 200-239 mg/dLHigh Cholesterol: greater than 239 mg/dL LDL Cholesterol Calculated 130(H) <100 mg/dL [facility] Comment:Desirable LDL: less than 100 mg/dLNear Optimal/Above Optimal LDL: 110- 129 mg/dLBorderline High LDL: 130-159 mg/dLHigh LDL: 160-189 mg/dLVery High LDL: greater than or equal to 190 mg/dL HDL Cholesterol 57 >40 mg/dL [facility] Comment:Desirable HDL: great er than 40 mg/dL Note: This HDL assay may give artificially low results in patients with liver disease. Blood Venous blood specimen / Unknown 10/21/2023 11:50 AM EST 10/21/2023 1:25 PM EST us Wendy Donahue MD LAB BLOOD ORDERABLES Final Result Performing Organization Address City/[facility]/ZIP Co de Phone Number [facility] [address] [place] [address] [phone] from Last 3 Months or Most Recently Relevant to Health Maintenance Insurance [facility] [place] STAND ADULT Advance Directives Documents on File Type Date Recorded Patient Angular Js Developer Expl anation Advance Directives and Living Will 10/21/2023 Care Teams Managed Security Sales Consultant Relationship Specialty Start Date End Date Wendy Jimenez MD [address] [place] [phone] PCP - General Family Medicine 10/15/21
== END 2024-11-09 11:29 | disposition home or self-care (01) ==
LOC: HO.HHCX 11:28
PROVIDERS: Visit Provider Internal Medicine
DX: M54.41 Lumbago with sciatica, right side (principal); G89.29 Other chronic pain
CPT/HCPCS: 72100

== ENCOUNTER → 2024-11-09 11:28 | Outpatient (BNV) | payer MEDICAID, SELFPAY | PROVIDERS: Visit Provider Radiology Diagnostic Radiology | DX: M54.9 Dorsalgia, unspecified (principal) | CPT/HCPCS: 72100 ==

== ENCOUNTER → 2024-11-25 12:56 | Outpatient (BNVA) | payer OTHER, SELFPAY | PROVIDERS: Visit Provider Physician Assistant | DX: S05.02XA Injury of conjunctiva and corneal abrasion without foreign body, left eye, initial encounter (principal); X58.XXXA Exposure to other specified factors, initial encounter; Z02.79 Encounter for issue of other medical certificate | CPT/HCPCS: 92002; 99203 ==

== ENCOUNTER 2025-02-10 09:23 | Outpatient (REF) | payer BC, SELFPAY ==
--- NOTE | ~2025-02-10 | XR_ITS ---
EXAMINATION: XR PELVIS CLINICAL INFORMATION: M53.3 - Sacrococcygeal disorders, not elsewhere classified COMPARISON: None available. TECHNIQUE: AP view of the pelvis. FINDINGS: No fracture, dislocation, or suspicious bone lesion. Normal hip joint spaces. Normal hip alignment. Normal acetabular coverage. Normal SI joints and sacrum. Normal lower lumbar spine. Normal-appearing soft tissues. XR/XR pelvis min 3V IMPRESSION: Normal pelvis. Electronically signed by: Eric Boudreaux MD 02/10/2025 10:07 AM EDT
--- NOTE | ~2025-02-10 | XR_ITS ---
EXAMINATION: XR SACRUM AND COCCYX CLINICAL INFORMATION: M53.3 - Sacrococcygeal disorders, not elsewhere classified COMPARISON: None available. TECHNIQUE: 2 views of the sacrum and 2 views of the coccyx were obtained. FINDINGS: There are no fractures. No bone, joint or soft tissue abnormality is demonstrated. Normal SI joints. The coccyx is is inwardly directed but otherwise unremarkable. XR/XR sacrum coccyx min 2V IMPRESSION: Normal sacrum and coccyx. Electronically signed by: Eric Boudreaux MD 02/10/2025 10:06 AM EDT
== END 2025-02-10 09:24 | disposition home or self-care (01) ==
LOC: HO.HOSX 09:23
PROVIDERS: Visit Provider Physical Medicine & Rehabilitation
DX: M53.3 Sacrococcygeal disorders, not elsewhere classified (principal); M62.89 Other specified disorders of muscle; M54.41 Lumbago with sciatica, right side
CPT/HCPCS: 72190; 72220

== ENCOUNTER 2025-02-10 09:23 | Outpatient (AMB) | payer BC, SELFPAY ==
--- NOTE | 2025-02-10 09:26 | A.OFFVIS_ITS ---
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 Patient was referred by Wendy Michel MD of [facility] on 11/09/2024. Patient was referred to Physical Therapy with no relief. States her MRI was denied. X- ray's done. Currently states her pain is mainly in her tailbone and worse with pressure and lifting. At times pain radiates to the front of her thigh.Denies numbness or tingling in toes. Allergies No Known Allergies Allergy (Verified 02/10/25 09:27) Medication List - Last Reconciled 02/10/25 by Niesha Muñoz MD ibuprofen 800 mg PO TID ondansetron 4 mg PO Q8H PRN polymyxin B sulf-trimethoprim 10,000 unit- 1 mg/mL 1 drp ophthalmic (eye) TID 5 days prednisone 40 mg (2 x 20 mg) PO DAILY 5 days HPI Comments Details: Points to midline lumbar, going down, sometimes radiates to left leg. For 2 years. No inciting injuries. Denies numbness. Feels some weakness, limping on left leg when the pain is severe. More painful with sitting on rigid chair or standing on concrete. 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 Used to have a sedentary job when it first started. She denies bladder or bowel changes. But she admits to pain with sexual intercourse. 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 Patient was appropriately conversant and oriented. Good historian. MSK: No specific abnormalities found on inspection of the spine and all extremities. No pain with palpation over the lumbar area. SI joint and GT nontender. Slight tenderness over lower abdomen, bilateral lower quadrants. No palpable mass. No tenderness over inguinal/groin. Lumbar ROM was full. Bilateral hip, knee and ankle ROM WNL. No ligamentous laxity or crepitance. No increased effusion. Straight-leg raising test negative. FABERE test positive bilateral lower back/tailbone pain. Scour test is negative. Strength is 5/5 in all muscle groups tested. No increased tone noted. Neurological: Neurologic examination of the upper and lower extremities was nonfocal with intact sensation, muscle stretch reflexes and without focal motor deficits . Merino?s negative bilaterally. Babinski was down going bilaterally. Clonus was negative. Gait is non-antalgic without loss of balance. Results Reviewed Results Reviewed: Ordering Physician: Wendy Jimenez MD Date of Service: 11/09/24 Procedure(s): XR lumbar spine 2-3V Accession Number(s): [id number] cc: Wendy Jimenez MD~ EXAMINATION: XR LUMBAR SPINE 2-3 VIEWS HISTORY: chronic pain COMPARISON: Comparison is made with the prior examination dated 09/04/2022. FINDINGS: AP, lateral, and coned down views of the lumbar spine are submitted. Osseous mineralization is normal. Five nonrib-bearing lumbar vertebral bodies are identified, maintaining normal height without evidence of fracture or spondylolisthesis. There is rightward curvature which may be positional in nature. The intervertebral disc spaces are preserved. The posterior elements are intact. The visualized paraspinal soft tissues are unremarkable. XR/XR lumbar spine 2-3V IMPRESSION: Rightward curvature which may be positional in nature. Otherwise unremarkable examination of the lumbar spine. Electronically signed by: [place] MD 11/09/2024 11:40 AM EDT I reviewed records from the following: PCP Assessment & Plan Assessment & Plan (1) Coccyx pain: Code(s): M53.3 - Sacrococcygeal disorders, not elsewhere classified Category: Medical (2) Pelvic floor dysfunction: Code(s): M62.89 - Other specified disorders of muscle Category: Medical Plan Tailbone/coccyx pain. Without signs of lumbar radiculopathy. No SI joint tenderness. Question possibility of pelvic floor dysfunction. I am getting pelvic and tailbone x-rays today. Referring to PT, specifically for pelvic floor therapy. Discussed with patient the difference of pelvic floor therapy from regular PT. Patient eager to try. Assessment and plan discussed with patient, and patient was agreeable. All questions were answered thoroughly. Follow up 2-3 months, after PT. Niesha Muñoz MD, [place] Board Certified, [place] Board of Physical Medicine and Rehabilitation (ABPMR) Board Certified, [place] Board of Electrodiagnostic Medicine (ABEM) Orders: Orders XR sacrum coccyx min 2V Today M53.3 - Sacrococcygeal disorders, not elsewhere classified, M62.89 - Other specified disorders of muscle PT Evaluation and Treatment Today M53.3 - Sacrococcygeal disorders, not elsewhere classified, M62.89 - Other specified disorders of muscle XR pelvis min 3V Today M53.3 - Sacrococcygeal disorders, not elsewhere classified, M62.89 - Other specified disorders of muscle Coding Level of Care Code New Pt Level 4 (51400) Diagnoses Coccyx pain M53.3 Pelvic floor dysfunction M62.89
[2025-02-10 09:27] VITALS: BMI 25.5
--- OUTSIDE RECORDS SUMMARY | 2025-02-10 09:41 | XMS_ITS | Data Portability ---
Author Organization [place] - [facility], [facility] Address [address] [place] [address] Assessment No assessment recorded. 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/Pharmacy #[id number], [address], [place], [address], 4 10:19:51 Patient TargetsNo targets recorded. Patient InstructionsNo instructions recorded. Reason for Referral Physical Therapist Referral for Low back pain Evaluate & RxLumbar Stabilization Program+ pelvic stabilization Referring Physician: Peyton Langley, Orthopedic Surgery, [id number] Encounter Date: 12/07/2023 Results Created Date Observation Date Name Description Value Unit Range Abnormal Flag Note LastModifiedBy Organization Detail LastModifiedTime 12/07/19 24 12/07/2023 XR, lumbo sacra l spine , 2 or 3 view, bendi ng only http:/ [email or web address] ?Encry pted=s hAaTro YD8dLq bEUv6g %2BXZw aYqtaq 0bqfl% 2Fg9IQ a4ajBk vP9nXo QUaueC m3YtLR FvZlgJ JJ8mAn HZtai3 3i8860 AC0Ksa H6FVqv eUC8mr 84%3D INTERFACE [facility] [address], [place], [address], 12/07/2023 09:02:21 12/07/19 24 12/07/2023 XR, lumbo sacra l spine , 2 or 3 view, bendi ng only http:/ [email or web address] ?Encry pted=s LeoncioaTro YD8dLq bEUv6g %2BXZw aYqtaq 0bqfl% 2Fg9IQ a4ajBk vP9nXo QUaueC m3YtLR FvZl [facility] 1g4278 AC0Ksa H6FVqv eUC8mr 84%3D INTERFACE [facility] [address], [place], [address], 12/07/2023 09:02:23 Result Notes Documentation Provider Name and Address Organization Details Recorded Time Xr, Lumbosacral Spine, 2 Or 3 View, Bending Only : [email or web address]? Encrypted=msZaFhtOE3lBcwH Uv6g%2SEIchPbkgi3sjgk%2Fg 8OPu5jxRsqQ1oKuXEbknRx9Jg QMLsUubBVG0wNzBJfyn86o974 2ON6CzcQ0VQtucNK8ab85%3D Not Available [facility] 12/07/2023 09:0 2:22 Xr, Lumbosacral Spine, 2 Or 3 View, Bending Only : [email or web address] Encrypted=biCzYyxCR9gDiwC Uv6g%7XCAkiBcscv0egdj%2Fg 4WTg6poYxtR6sEoLMlrvFv5Bp BNBzYvqOMG9sQsLIppj17g494 1BD1IfyL3CBxixII7gr95%3D Not Available [facility] 12/07/2023 09:0 2:23 Medical Equipment None Reported. Allergies No known [...] Updated DateTime 12/07/2023 154.94 cm 26.1 kg/m2 38498.75 g Xiomara martin [place] - [facility] 12/07/2023 [...] SNOMED-CT Code Diagnosis ICD10 Code Diagnosis Note [id number] JASVIR Snow [address] [place] [address] 12/07/2023 08:37:51 12/24/2023 11:33:18 Low back pain 769009444 M54.50 Lumbar radiculitis 42013 32293 [id number] M54.16 Health Concerns Section Related Observation LastModified by Organization Detai ls LastModified Time None Recorded Concern Status LastModified by Organization Details LastModified Time None Recorded Advance Directives Directive None Recorded Payers Insurance Date Sequence Insurance Name Policy Number Policy Moran Covered Member ID Moran Member ID Guarantor Name 02/08/2024 1 [facility] [id number] Jason Naht [id number] Jason Nath Notes Date Note Type [...] by me and is located in the patient s chart. Examination: The patient is well appearing, [...] the affected side. Strength and sensation intact. Re exes normal. No ankle clonus. X-rays ordered, obtained and reviewed at [facility], 2 views of the lumbar spine reveals [...] Follow-up will be arranged in 8 weeks. The [employer] speech recognition intelligence officer basic software was used to create portions of this document. An attempt at proofreading has been made to minimize errors. Please call for corrections. Peyton Langley PA-C [address] [place] [address] [address] [facility], [place], [address], [facility] - [facility] 12/09/2023 09:46:32 OBGyn Episode No OBEpisode recorded.
== END 2025-02-10 12:54 | disposition home or self-care (01) ==
LOC: HO.HOS 09:24
PROVIDERS: Visit Provider Physical Medicine & Rehabilitation
DX: M53.3 Sacrococcygeal disorders, not elsewhere classified (principal); M62.89 Other specified disorders of muscle
CPT/HCPCS: 99204

== ENCOUNTER → 2025-02-10 09:49 | Outpatient (BNV) | payer BC, SELFPAY | PROVIDERS: Visit Provider Radiology Diagnostic Radiology | DX: M53.3 Sacrococcygeal disorders, not elsewhere classified (principal) | CPT/HCPCS: 72190; 72220 ==